=== PATIENT | female | born 1975 | race Caucasian/White ===

== ENCOUNTER 2020-10-01 17:36 | Outpatient (REF) | payer OTHER, SELFPAY | END 2020-10-01 17:37 | disposition home or self-care (01) | LOC: HO.LAB 17:36 | PROVIDERS: PCP Internal Medicine; Visit Provider Internal Medicine | DX: Z20.828 Contact with and (suspected) exposure to other viral communicable diseases (principal) | CPT/HCPCS: C9803; U0003 ==

== ENCOUNTER 2020-10-28 16:32 | Outpatient (REF) | payer OTHER, SELFPAY | END 2020-10-28 16:33 | disposition home or self-care (01) | LOC: HO.LAB 16:32 | PROVIDERS: PCP Internal Medicine; Visit Provider Internal Medicine | DX: Z20.828 Contact with and (suspected) exposure to other viral communicable diseases (principal) | CPT/HCPCS: 36415; C9803; U0003 ==

== ENCOUNTER 2021-06-06 11:10 | Outpatient (REF) | payer OTHER, SELFPAY | END 2021-06-06 11:11 | disposition home or self-care (01) | LOC: HO.LAB 11:10 | PROVIDERS: PCP Internal Medicine; Visit Provider Internal Medicine | DX: Z20.822 Contact with and (suspected) exposure to COVID-19 (principal) | CPT/HCPCS: C9803; U0003; U0005 ==

== ENCOUNTER 2021-06-20 10:53 | Emergency (ER) | payer OTHER, SELFPAY ==
--- NOTE | ~2021-06-20 | US_ITS ---
EXAMINATION: PELVIC ULTRASOUND CLINICAL INFORMATION: Pain COMPARISON: Previous CT of the abdomen and pelvis most recent from earlier the same day and pelvic ultrasound March 2017 TECHNIQUE: Transabdominal and transvaginal pelvic ultrasound was performed. Transvaginal exam was performed for better visualization of the uterus and ovaries. Grayscale and color Doppler evaluation including waveform spectral analysis of the ovarian vessels was also performed. FINDINGS: The uterus is retroverted and measures 9.2 x 4.6 x 5.2 cm. No focal uterine lesion is seen. Endometrial thickness is normal measuring 0.7 cm. There are nabothian cysts in the cervix. The right ovary is enlarged and measures 4.7 x 4.2 x 3.4 cm. There is a 4.3 x 3.7 x 3.3 cm complex cyst with several septations. The left ovary is upper normal in size and measures 3.7 x 2.7 x 2.6 cm. There is a 3.7 x 2.7 x 2.6 cm complex cyst with low-level internal echoes. This has a small peripheral echogenic component that measures 1.2 x 1.1 x 0.8 cm. There is a 1.6 x 1.5 x 1.8 cm simple cyst. There is a small amount of fluid in the pelvis. US/US pelvic ovarian doppler IMPRESSION: Bilateral complex ovarian cysts. No evidence of torsion. Small amount of fluid in the pelvis.
--- NOTE | ~2021-06-20 | CT_ITS ---
EXAMINATION: CT ABDOMEN AND PELVIS WITHOUT CONTRAST CLINICAL INFORMATION: Flank pain. Hematuria. COMPARISON: Previous CT of the abdomen and pelvis April 2018 TECHNIQUE: Multidetector volumetric imaging was performed from the superior aspect of the liver through the pubic symphysis. Sagittal and coronal reformatted images were obtained on the technologist's workstation. This CT examination was performed using dose optimization techniques as appropriate, variously including the following: *Automated exposure control *Adjustment of mA and/or kV according to patient size (this includes techniques or standardized protocols for targeted exams where dose is matched to indication/reason for exam; i.e. extremities or head) *Use of iterative reconstruction technique DLP: 673 mGy-cm FINDINGS: LUNG BASES: The visualized lung bases are unremarkable. LIVER, GALLBLADDER, AND BILIARY TREE: The liver is normal in size, shape, and attenuation. No focal hepatic lesion or biliary ductal dilatation is present. The gallbladder is unremarkable with no evidence of radiopaque gallstones, gallbladder wall thickening, or obvious pericholecystic inflammatory changes. PANCREAS: Unremarkable. SPLEEN: The spleen is slightly enlarged measuring 14 cm in length. ADRENAL GLANDS: Unremarkable. KIDNEYS AND URETERS: There are 2 right renal stones measuring 2 mm in the upper and lower pole. There are 2 left renal stones, measuring 2 mm in the midpole and 3 mm in the lower pole. No hydronephrosis, ureteral dilatation or ureteral stone. There is a 2 cm on slightly high attenuation lesion in the upper pole of the left kidney. Hounsfield units without contrast measure 26. Compare with previous CT scan probably represents a hyperdense cyst. BLADDER: Unremarkable. GASTROINTESTINAL TRACT: The small and large bowel are there is diverticulosis of the colon. Unremarkable. The appendix is unremarkable. ABDOMINAL WALL: No significant hernia is appreciated. LYMPH NODES: Normal. VASCULAR: Unremarkable. PELVIC VISCERA: Both ovaries appear enlarged containing ascitic. Largest cyst measures 3 x 4.3 cm on the right. Uterus is unremarkable. There is trace fluid in the pelvis and OSSEOUS STRUCTURES: There is an old left posterior 11th rib fracture. CT/CT abdomen pelvis wo con IMPRESSION: Small bilateral renal stones. No hydronephrosis, ureteral dilatation or ureteral. Probable 2 cm hyperdense left renal cyst. Slightly enlarged spleen. Enlarged ovaries and bilateral ovarian cysts.
[2021-06-20 11:15] VITALS: BP 129/78; PULSE 135; RESP 18; TEMP 36.9; O2SAT 95; BMI 27.7
--- NOTE | 2021-06-20 11:41 | ED_ITS ---
HPI - Abdominal Pain General Chief Complaint: Abdominal Pain Stated Complaint: abd pain Time Seen by Provider: 06/20/21 11:41 Source: patient Mode of arrival: ambulatory Limitations: no limitations History of Present Illness MD elicited complaint: abdominal pain Pertinent past history: other (ruptured ovarian cyst in past has caused hemoperitoneum) Onset (ago): day(s) (last night) Pain Consistency: constant Location: diffuse Severity: moderate Quality: cramping Radiation: none Migration to: no migration Exacerbating factors: movement Relieving factors: nothing Context: history of similar episodes Associated symptoms: nausea Related Data Previous Rx's Medication Instructions Recorded morphine 15 mg immediate release 15 mg PO Q6H PRN 3 Days #12 tab 06/20/21 tablet ondansetron 4 mg disintegrating 4 mg PO Q8H PRN #20 tab 06/20/21 tablet Allergies Allergy/AdvReac Type Severity Reaction Status Date / Time No Known Allergies Allergy Verified 06/20/21 11:15 [No Known Allergies*] Review of Systems Review of Systems Constitutional : No Weight loss, No Fever, No Chills ENT/Mouth : No sore throat, No Rhinorrhea Eyes: No Swelling, No Redness Cardiovascular : No Chest Pain, No SOB, NoEdema Respiratory : No Cough, No Sputum, No Wheezing Gastrointestinal : Positive Nausea, no Vomiting, no Diarrhea, positive abdominal Pain, No Hematochezia, No Melena Genitourinary : No Dysuria, No Urinary Frequency, No Hematuria, No Urgency Musculoskeletal : No joint pain, No Myalgias, No Joint Swelling Skin : No Skin Lesions, No rash Neuro : No Weakness, No Numbness, No Dizziness, No Headache Psych : No Anxiety/Panic, No Depression Heme/Lymph: No Bruising, No Lymphadenopathy Endocrine : No Polyuria, No Polydipsia All other systems reviewed and are negative. Physical Exam Vital Signs: Vital Signs: Last Vital Signs Temp 98.5 F 06/20/21 11:15 Pulse 135 H 06/20/21 11:15 Resp 14 06/20/21 12:13 BP 129/78 06/20/21 11:15 Pulse Ox 95 06/20/21 11:15 Body Mass Index 27.7 Appearance: Alert. Oriented X3. Anxious in pain, mild acute distress. Eyes: Pupils equal, round and reactive to light. ENT: Pharynx normal. Neck: Normal inspection. Neck supple. CVS: tachycardic heart rate and rhythm. Pulses normal. Respiratory: No respiratory distress. Breath sounds normal. Abdomen: Soft and moderate with diffuse ttp pos guarding no rebound Skin: Skin warm and dry. Normal skin color. Normal skin turgor. Extremities: No lower extremity edema. No calf ttp Neuro: Oriented X 3. No motor deficit. No sensory deficit. Procedures FAST Exam FAST Exam 1: Fluid in Morison's pouch: No Fluid in Splenorenal Junction: No Fluid around bladder, Transverse view: No Fluid around bladder, Sagittal view: No Fluid in Pericardial Sac: No Gross Wall Motion Abnormality: No Study normal for this patient: Yes Images saved for further review: No Course Course Course Narrative: noted hematuria no free fluid on FAST ?kidney stone - CT scan ordered normal appearing liver - elevated liver enzymes will have her repeat testing with her doctor, bilateral ovarian cysts cause of pain, can be managed as outpatient with oral pain medications, denies chronic ETOH abuse MDM - Abdominal Pain MDM Narrative Medical decision making narrative: 46 yo female with prior ovarian cyst with rupture in past requiring emergency surgery at this time will need labs, IVF, IV fentanyl for pain, US to evaluate ovaries, dispo per results and findings. Lab Data Result diagrams: 06/20/21 12:05 06/20/21 12:05 Labs: Lab Results 06/20/21 06/20/21 06/20/21 Range/Units 12:04 12:04 12:05 WBC 12.3 H (4.8-10.8) X10*3/uL RBC 4.50 (4.20-5.50) X10*6/uL Hgb 13.9 (12.0-16.0) g/dl Hct 40.3 (37-47) % MCV 89.6 (80-98) fL MCH 30.9 (27.0-33.0) pg MCHC 34.5 (31.0-35.0) g/dl RDW 12.2 (11.0-16.0) % Plt Count 109 L (160-400) X10*3/uL MPV 10.5 (9.4-12.3) fL Immature Gran % (Auto) 0.2 (0.0-0.4) % Neut % (Auto) 90.9 H (45-73) % Lymph % (Auto) 4.7 L (20-40) % [place] % (Auto) 4.1 (2-11) % Eos % (Auto) 0.0 (0-4) % Baso % (Auto) 0.1 (0-2) % Lymph # (Auto) 0.6 L (1.2-4.9) X10*3/uL [place] # (Auto) 0.5 (0.1-1.2) X10*3/uL Eos # (Auto) 0.0 (0.0-0.4) X10*3/uL Baso # (Auto) 0.0 (0.0-0.2) X10*3/uL Abs Immat Gran (auto) 0.03 (0.00-0.03) X10*3/uL Absolute Neuts (auto) 11.2 H (2.0-8.3) X10*3/uL Absolute Nucleated RBC 0.000 (0.0-0.012) X10*3/uL Nucleated RBC % (auto) 0.0 (0.0-0.2) /100WBC Smear Tech's Comments VERIFIED PT (9.9-13.0) SEC INR (0.9-1.1) APTT (24.1-38.0) SEC Sodium (135-145) mmol/L Potassium (3.3-5.1) mmol/L Chloride (96-108) mmol/L Carbon Dioxide (22-29) mmol/L Anion Gap (12-20) BUN (9-16) mg/dL Creatinine (0.5-1.4) mg/dL Estim Creat Clear Calc Estimated GFR Random Glucose (60-115) mg/dL Lactic Acid (0.5-2.0) mmol/L Calcium (8.4-10.2) mg/dL Magnesium (1.6-2.6) mg/dL Total Bilirubin (0.0-1.0) mg/dL Direct Bilirubin (0.0-0.5) mg/dL AST (5-31) U/L ALT (0-31) U/L Alkaline Phosphatase (39-117) U/L Total Protein (6.5-8.0) g/dL Albumin (3.5-5.0) g/dL Lipase (8-78) U/L Urine Color DARK YELLOW Urine Appearance HAZY Urine pH 5.5 (5.0-8.0) Ur Specific [place] >= 1.030 H (1.005-1.025) Urine Protein TRACE (NEG-TRACE) MG/DL Urine Glucose (UA) NEG (NEG) MG/DL Urine Ketones 5 (NEG) MG/DL Urine Blood NEG (NEG) Urine Nitrite NEG (NEG) Ur Leukocyte Esterase NEG (NEG) Urine Test NEGATIVE (NEGATIVE) COVID-19 (HEIDI) (Negative) COVID-19 Clin Com 06/20/21 06/20/21 06/20/21 Range/Units 12:05 12:05 12:05 WBC (4.8-10.8) X10*3/uL RBC (4.20-5.50) X10*6/uL Hgb (12.0-16.0) g/dl Hct (37-47) % MCV (80-98) fL MCH (27.0-33.0) pg MCHC (31.0-35.0) g/dl RDW (11.0-16.0) % Plt Count (160-400) X10*3/uL MPV (9.4-12.3) fL Immature Gran % (Auto) (0.0-0.4) % Neut % (Auto) (45-73) % Lymph % (Auto) (20-40) % [place] % (Auto) (2-11) % Eos % (Auto) (0-4) % Baso % (Auto) (0-2) % Lymph # (Auto) (1.2-4.9) X10*3/uL [place] # (Auto) (0.1-1.2) X10*3/uL Eos # (Auto) (0.0-0.4) X10*3/uL Baso # (Auto) (0.0-0.2) X10*3/uL Abs Immat Gran (auto) (0.00-0.03) X10*3/uL Absolute Neuts (auto) (2.0-8.3) X10*3/uL Absolute Nucleated RBC (0.0-0.012) X10*3/uL Nucleated RBC % (auto) (0.0-0.2) /100WBC Smear Tech's Comments PT 14.0 H (9.9-13.0) SEC INR 1.2 H (0.9-1.1) APTT 39.7 H (24.1-38.0) SEC Sodium 136 (135-145) mmol/L Potassium 3.6 (3.3-5.1) mmol/L Chloride 106 (96-108) mmol/L Carbon Dioxide 22 (22-29) mmol/L Anion Gap 12 (12-20) BUN 9 (9-16) mg/dL Creatinine 0.73 (0.5-1.4) mg/dL Estim Creat Clear Calc 106.1 Estimated GFR > 60 Random Glucose 103 (60-115) mg/dL Lactic Acid 1.9 (0.5-2.0) mmol/L Calcium 8.4 (8.4-10.2) mg/dL Magnesium 1.5 L (1.6-2.6) mg/dL Total Bilirubin 2.2 H (0.0-1.0) mg/dL Direct Bilirubin 1.4 H (0.0-0.5) mg/dL AST 82 H (5-31) U/L ALT 91 H (0-31) U/L Alkaline Phosphatase 97 (39-117) U/L Total Protein 6.2 L (6.5-8.0) g/dL Albumin 3.4 L (3.5-5.0) g/dL Lipase 18 (8-78) U/L Urine Color Urine Appearance Urine pH (5.0-8.0) Ur Specific [place] (1.005-1.025) Urine Protein (NEG-TRACE) MG/DL Urine Glucose (UA) (NEG) MG/DL Urine Ketones (NEG) MG/DL Urine Blood (NEG) Urine Nitrite (NEG) Ur Leukocyte Esterase (NEG) Urine Test (NEGATIVE) COVID-19 (HEIDI) (Negative) COVID-19 Clin Com 06/20/21 06/20/21 Range/Units 12:05 12:06 WBC (4.8-10.8) X10*3/uL RBC (4.20-5.50) X10*6/uL Hgb (12.0-16.0) g/dl Hct (37-47) % MCV (80-98) fL MCH (27.0-33.0) pg MCHC (31.0-35.0) g/dl RDW (11.0-16.0) % Plt Count (160-400) X10*3/uL MPV (9.4-12.3) fL Immature Gran % (Auto) (0.0-0.4) % Neut % (Auto) (45-73) % Lymph % (Auto) (20-40) % [place] % (Auto) (2-11) % Eos % (Auto) (0-4) % Baso % (Auto) (0-2) % Lymph # (Auto) (1.2-4.9) X10*3/uL [place] # (Auto) (0.1-1.2) X10*3/uL Eos # (Auto) (0.0-0.4) X10*3/uL Baso # (Auto) (0.0-0.2) X10*3/uL Abs Immat Gran (auto) (0.00-0.03) X10*3/uL Absolute Neuts (auto) (2.0-8.3) X10*3/uL Absolute Nucleated RBC (0.0-0.012) X10*3/uL Nucleated RBC % (auto) (0.0-0.2) /100WBC Smear Tech's Comments PT (9.9-13.0) SEC INR (0.9-1.1) APTT (24.1-38.0) SEC Sodium (135-145) mmol/L Potassium (3.3-5.1) mmol/L Chloride (96-108) mmol/L Carbon Dioxide (22-29) mmol/L Anion Gap (12-20) BUN (9-16) mg/dL Creatinine (0.5-1.4) mg/dL Estim Creat Clear Calc Estimated GFR Random Glucose (60-115) mg/dL Lactic Acid (0.5-2.0) mmol/L Calcium (8.4-10.2) mg/dL Magnesium (1.6-2.6) mg/dL Total Bilirubin (0.0-1.0) mg/dL Direct Bilirubin (0.0-0.5) mg/dL AST (5-31) U/L ALT (0-31) U/L Alkaline Phosphatase (39-117) U/L Total Protein (6.5-8.0) g/dL Albumin (3.5-5.0) g/dL Lipase (8-78) U/L Urine Color Urine Appearance Urine pH (5.0-8.0) Ur Specific [place] (1.005-1.025) Urine Protein (NEG-TRACE) MG/DL Urine Glucose (UA) (NEG) MG/DL Urine Ketones (NEG) MG/DL Urine Blood (NEG) Urine Nitrite (NEG) Ur Leukocyte Esterase (NEG) Urine Test Cancelled (NEGATIVE) COVID-19 (HEIDI) Negative (Negative) COVID-19 Clin Com See Note Discharge Plan Discharge Clinical Impression: Elevated liver enzymes, Complex cyst of both ovaries, Hypomagnesemia Patient Disposition: Home, Self-Care Instructions: Ovarian Cyst (ED), Hypomagnesemia (ED) Additional Instructions: return to ED for any worsening symptoms or concerns YOU NEED TO FOLLOW UP WITH YOUR OBGYN The uterus is retroverted and measures 9.2 x 4.6 x 5.2 cm. No focal uterine lesion is seen. Endometrial thickness is normal measuring 0.7 cm. There are nabothian cysts in the cervix. The right ovary is enlarged and measures 4.7 x 4.2 x 3.4 cm. There is a 4.3 x 3.7 x 3.3 cm complex cyst with several septations. The left ovary is upper normal in size and measures 3.7 x 2.7 x 2.6 cm. There is a 3.7 x 2.7 x 2.6 cm complex cyst with low-level internal echoes. This has a small peripheral echogenic component that measures 1.2 x 1.1 x 0.8 cm. There is a 1.6 x 1.5 x 1.8 cm simple cyst. There is a small amount of fluid in the pelvis. US/US pelvic ovarian doppler IMPRESSION: Bilateral complex ovarian cysts. No evidence of torsion. Small amount of fluid in the pelvis.? NO ALCOHOL OR TYLENOL Prescriptions: New morphine 15 mg tablet 15 mg PO Q6H PRN (Reason: pain) 3 Days Qty: 12 RF: 0 ondansetron 4 mg tablet,disintegrating 4 mg PO Q8H PRN (Reason: nausea and vomiting) Qty: 20 RF: 0 Referrals: Ninoska Cheatham MD [Primary Care Provider] - 3 days (recheck liver function tests ) Stand Alone Forms: Work/School Release [facility] Past Medical History Attestation statement: The following information was validated with the patient. Medical History Kidney stones Ovarian cyst Renal cyst Social History Social History (Updated 06/20/21 @ 11:56 by Betina Ruiz DO) Alcohol intake: never Patient Tobacco Use Status: Never used Tobacco Use of substances other than those prescribed or required for medical reasons: No Advance Directives: No Advance Directives Information Provided: Yes
[2021-06-20 12:13] VITALS: RESP 14
[2021-06-20] MEDS: fentaNYL citrate/PF 100 MCG/2 ML VIAL 50 MCG IVPUSH (12:13)
[2021-06-20] MEDS: ondansetron HCL 4 MG/2 ML VIAL IVPUSH (12:13)
[2021-06-20] MEDS: 0.9 % Sodium Chloride 1,000 ML 999 ML IVCONT (12:14)
[2021-06-20 12:20] LABS: Basophils Percent Auto 0.1 % (0-2); Hematocrit 40.3 % (37-47); Hemoglobin 13.9 g/dl (12.0-16.0); Imm Gran Abs Auto 0.03 X10*3/uL (0.00-0.03); Imm Gran Pct Auto 0.2 % (0.0-0.4); Lymphocytes Absolute Auto 0.6 X10*3/uL (1.2-4.9); Lymphocytes Percent Auto 4.7 % (20-40); MANUAL DIFF FLAG SCAN; Mean Corpuscular HGB Conc 34.5 g/dl (31.0-35.0); Mean Corpuscular Hemoglobin 30.9 pg (27.0-33.0); Mean Corpuscular Volume 89.6 fL (80-98); Mean Platelet Volume 10.5 fL (9.4-12.3); Monocytes Absolute Auto 0.5 X10*3/uL (0.1-1.2); Monocytes Percent Auto 4.1 % (2-11); Neutrophils Absolute Auto 11.2 X10*3/uL (2.0-8.3); Neutrophils Percent Auto 90.9 % (45-73); Platelet Count 109 X10*3/uL (160-400); Red Cell Distribution Width 12.2 % (11.0-16.0); SCAN SMEAR FLAG 1; White Blood Count 12.3 X10*3/uL (4.8-10.8)
[2021-06-20 12:27] LABS: INTERNATIONAL NORM RATIO 1.2 (0.9-1.1)
[2021-06-20 12:30] LABS: IDNOW Serial# 08D9AD1C; Partial Thromboplastin Time 39.7 SEC (24.1-38.0)
[2021-06-20 12:31] LABS: COVID-19 Test Negative (Negative)
[2021-06-20 12:35] LABS: Lactic Acid 1.9 mmol/L (0.5-2.0)
[2021-06-20 12:39] LABS: Appearance Urine HAZY; Color Urine DARK YELLOW; Glucose Urine UA NEG (NEG); Leukocyte Esterase Urine NEG (NEG); Nitrite Urine NEG (NEG); PH 5.5 (5.0-8.0); Specific Gravity - Urine >= 1.030 (1.005-1.025); Urine Blood NEG (NEG); Urine Ketones 5 MG/DL (NEG); Urine Protein TRACE MG/DL (NEG-TRACE)
[2021-06-20 12:41] LABS: Alanine Aminotransferase 91 U/L (0-31); Albumin Level 3.4 g/dL (3.5-5.0); Alkaline Phosphatase 97 U/L (39-117); Anion Gap 12 (12-20); Aspartate Amino Transferase 82 U/L (5-31); Bilirubin Direct 1.4 mg/dL (0.0-0.5); Bilirubin Total 2.2 mg/dL (0.0-1.0); Blood Urea Nitrogen 9 mg/dL (9-16); Calcium 8.4 mg/dL (8.4-10.2); Carbon Dioxide 22 mmol/L (22-29); Chloride 106 mmol/L (96-108); Creatinine Clr Calc Pharmacy 106.1; Estimated Glomerular Filt Rate > 60; Glucose Random 103 mg/dL (60-115); Lipase 18 U/L (8-78); Magnesium 1.5 mg/dL (1.6-2.6); Potassium 3.6 mmol/L (3.3-5.1); Sodium 136 mmol/L (135-145); Total Protein 6.2 g/dL (6.5-8.0)
[2021-06-20 12:48] LABS: SLIDE REVIEW VERIFIED
[2021-06-20 13:14] LABS: UPreg QC Valid YES; Urine Pregnancy NEGATIVE (NEGATIVE)
[2021-06-20] MEDS: Magnesium Sulfate/H2O 2 GM/50 ML PIGGYBACK IV (13:45)
[2021-06-20] MEDS: Ketorolac Tromethamine 15 MG/ML VIAL IVPUSH (13:58)
== END 2021-06-20 16:29 | disposition home or self-care (01) ==
PROVIDERS: Emergency Provider Emergency Medicine; PCP Internal Medicine
DX: E83.42 Hypomagnesemia (principal); N83.292 Other ovarian cyst, left side; N83.291 Other ovarian cyst, right side; R74.8 Abnormal levels of other serum enzymes; R10.9 Unspecified abdominal pain; Z20.822 Contact with and (suspected) exposure to COVID-19
CPT/HCPCS: 36415; 74176; 80048; 80076; 81003; 81025; 83605; 83690; 83735; 85025; 85610; 85730; 87635; 93975; 96361; 96365; 96366; 96375; 99284; J1885; J2405; J3010; J3475

== ENCOUNTER 2021-06-21 21:56 | Inpatient (IN) | payer OTHER, SELFPAY ==
--- NOTE | ~2021-06-21 | CT_ITS ---
EXAMINATION: CT ABDOMEN AND PELVIS WITHOUT CONTRAST CLINICAL INFORMATION: Mid to right-sided flank pain COMPARISON: 06/20/2021 TECHNIQUE: Multidetector volumetric imaging was performed from the superior aspect of the liver through the pubic symphysis. Sagittal and coronal reformatted images were obtained on the technologist's workstation. This CT examination was performed using dose optimization techniques as appropriate, variously including the following: *Automated exposure control *Adjustment of mA and/or kV according to patient size (this includes techniques or standardized protocols for targeted exams where dose is matched to indication/reason for exam; i.e. extremities or head) *Use of iterative reconstruction technique DLP: 662 mGy-cm FINDINGS: LUNG BASES: Small pleural effusions noted with adjacent dependent atelectasis. LIVER, GALLBLADDER, AND BILIARY TREE: The liver is normal in size, shape, and attenuation. No focal hepatic lesion or biliary ductal dilatation is present. The gallbladder is grossly unremarkable. PANCREAS: Unremarkable. SPLEEN: Mild splenomegaly redemonstrated. ADRENAL GLANDS: Unremarkable. KIDNEYS AND URETERS: Few scattered small bilateral renal calculi demonstrated measuring up to 4 mm. No hydronephrosis or ureteral calculus. BLADDER: Unremarkable. GASTROINTESTINAL TRACT: The small and large bowel are unremarkable. The appendix appears nondilated. Small amount of free fluid is noted in the pelvis. No free air is seen. ABDOMINAL WALL: No significant hernia is appreciated. LYMPH NODES: No lymphadenopathy is seen, though assessment is limited in the absence of intravenous contrast. VASCULAR: Minimal atherosclerotic calcification. PELVIC VISCERA: Redemonstrated bilateral ovarian cysts measuring up to approximately 3.8 cm on the right. OSSEOUS STRUCTURES: Unremarkable. CT/CT abdomen pelvis wo con IMPRESSION: 1. Small volume of nonspecific pelvic free fluid. Redemonstrated bilateral ovarian cysts, also noted on recent pelvic ultrasound 06/20/2021. 2. Mild splenomegaly redemonstrated. 3. Bilateral renal calculi without hydronephrosis.
--- NOTE | ~2021-06-21 | US_ITS ---
EXAMINATION: US RETROPERITONEAL LIMITED (RENAL ONLY) CLINICAL INFORMATION: Continued flank pain. COMPARISON: CT abdomen and pelvis 06/22/2021. TECHNIQUE: Real-time ultrasound was performed with brief Doppler evaluation. FINDINGS: RIGHT KIDNEY: 13.9 x 4.8 x 6.6 cm (SAG x AP x TRV). The kidney is normal in size, contour, and echogenicity. Renal cortical thickness is normal. No calculi or focal parenchymal lesions. No hydronephrosis. LEFT KIDNEY: 14.0 x 5.0 x 5.6 cm (SAG x AP x TRV). The kidney is normal in size, contour, and echogenicity. Renal cortical thickness is normal. There is a midpole calculus measuring 0.4 cm. The small lower pole calculus noted on the CT is not clearly identified. US/US renal BI IMPRESSION: Left renal calculus. No hydronephrosis.
[2021-06-21 22:21] VITALS: BP 155/70; PULSE 109; RESP 18; TEMP 36.9; O2SAT 95; BMI 27.7
--- NOTE | 2021-06-21 23:18 | ED.ABDPAIN ---
HPI - Abdominal Pain General Chief Complaint: Fever Stated Complaint: fever Time Seen by Provider: 06/21/21 23:03 Source: patient Mode of arrival: ambulatory Limitations: no limitations History of Present Illness HPI narrative: 46-year-old female diagnosed with kidney stones yesterday in this emergency department presents with fever of 100.7 oral, increasing pain to the flank, poor p.o. intake, malaise, and dark discolored urine. She denies chest pain or pressure, palpitations, abdominal distention, vomiting, diarrhea, constipation, and edema. MD elicited complaint: flank pain Onset (ago): day(s) (2) Pain Consistency: constant Location: R flank Severity: severe Pain scale (0-10): 9 Quality: aching Radiation: RLQ and R flank Exacerbating factors: movement Relieving factors: nothing Associated symptoms: nausea, fever, chills and anorexia Treatments prior to arrival: NSAIDs and prescription analgesics Related Data Previous Rx's Medication Instructions Recorded morphine 15 mg immediate release 15 mg PO Q6H PRN 3 Days #12 tab 06/20/21 tablet ondansetron 4 mg disintegrating 4 mg PO Q8H PRN #20 tab 06/20/21 tablet Allergies Allergy/AdvReac Type Severity Reaction Status Date / Time No Known Allergies Allergy Verified 06/21/21 22:21 [No Known Allergies*] Review of Systems Review of Systems Constitutional: Positive Fever, positive Chills, positive malaise, positive anorexia ENT/Mouth: No Ear Pain, No Hoarseness, No sore throat Eyes: No Eye Pain, No Swelling, No Redness, No Foreign Body Cardiovascular: No Chest Pain, No SOB Respiratory: No Cough, No Dyspnea Gastrointestinal: No Nausea, No Vomiting, No Diarrhea, positive abdominal Pain Genitourinary: Positive Dysuria, positive Hematuria Musculoskeletal: No joint pain, No Myalgias, No Joint Swelling Skin: No Skin lacerations, No rash Neuro: No Weakness, No Numbness, No Paresthesias, No Loss of Consciousness, No Dizziness, No Headache Psych: No Anxiety/Panic, No Depression Heme/Lymph: no easy bruising, no Lymphadenopathy Endocrine: No Polyuria, No Polydipsia Yes all other systems are reviewed and are negative Physical Exam Vital Signs: Vital Signs: Last Vital Signs Temp 98.5 F 06/21/21 22:21 Pulse 109 H 06/21/21 22:21 Resp 18 06/21/21 22:21 BP 155/70 H 06/21/21 22:21 Pulse Ox 95 06/21/21 22:21 Body Mass Index 27.7 Appearance: Alert. Oriented X3. Moderate distress. Appears tired. Eyes: Pupils equal, round and reactive to light. Sclera nonicteric. ENT: Pharynx normal. Dry mucous membranes. Neck: Normal inspection. Neck supple. No cervical lymphadenopathy. CVS: Tachycardic heart rate and rhythm. Pulses normal. Respiratory: No respiratory distress. Breath sounds normal. Abdomen: Soft and nontender. Positive bilateral CVA tenderness right greater than left Skin: Skin warm and dry. Normal skin color. Normal skin turgor. Extremities: No lower extremity edema. Gait well balanced well coordinated. Neuro: No motor deficit. No sensory deficit. Cranial nerves 2-12 intact Course Course Course Narrative: 46-year-old female presents with worsening flank pain, fever of 100.7 at home, poor p.o. intake and malaise. Will order CBC, Chem 7, urinalysis, lactic and cultures. Will give Toradol and fluids. 1:00 a.m. Urinalysis indicates positive leukocyte esterase, white count is elevated by 0.5 from yesterday, discussion with hospitalist regarding plan of care, plan is to admit for pyelonephritis. Will order CT scan of abdomen and pelvis at this time, although she did have 1 yesterday hospitalist would like to rule out obstruction as she does have bilateral renal stones measuring 2 mm. While patient does meet sepsis criteria at this time, she does not require 30 milliliters/kilogram fluid resuscitation as she does not meet severe sepsis. This was discussed with the hospitalist in detail. She will receive 2 L of fluid and ceftriaxone in the emergency department. Discussed plan with patient, patient agrees with plan of care. Consultations Consultation #1: David Time: 01:00 MDM - Abdominal Pain Differential Diagnosis Differential diagnosis: Likely abdominal pain and calculus of kidney Differential diagnosis narrative:: Pyelonephritis Medical Records Attestation: I reviewed the patient's medical records. Lab Data Attestation: I reviewed the patient's lab results. Result diagrams: 06/21/21 23:53 06/21/21 23:53 Labs: Lab Results 06/21/21 06/21/21 06/21/21 Range/Units 22:20 23:53 23:53 WBC 12.9 H (4.8-10.8) X10*3/uL RBC 4.05 L (4.20-5.50) X10*6/uL Hgb 12.6 (12.0-16.0) g/dl Hct 36.7 L (37-47) % MCV 90.6 (80-98) fL MCH 31.1 (27.0-33.0) pg MCHC 34.3 (31.0-35.0) g/dl RDW 12.7 (11.0-16.0) % Plt Count 121 L (160-400) X10*3/uL MPV 9.6 (9.4-12.3) fL Immature Gran % (Auto) 0.5 H (0.0-0.4) % Neut % (Auto) 86.7 H (45-73) % Lymph % (Auto) 8.7 L (20-40) % [place] % (Auto) 3.9 (2-11) % Eos % (Auto) 0.0 (0-4) % Baso % (Auto) 0.2 (0-2) % Lymph # (Auto) 1.1 L (1.2-4.9) X10*3/uL [place] # (Auto) 0.5 (0.1-1.2) X10*3/uL Eos # (Auto) 0.0 (0.0-0.4) X10*3/uL Baso # (Auto) 0.0 (0.0-0.2) X10*3/uL Abs Immat Gran (auto) 0.07 H (0.00-0.03) X10*3/uL Absolute Neuts (auto) 11.2 H (2.0-8.3) X10*3/uL Absolute Nucleated RBC 0.000 (0.0-0.012) X10*3/uL Nucleated RBC % (auto) 0.0 (0.0-0.2) /100WBC Sodium 134 L (135-145) mmol/L Potassium 3.7 (3.3-5.1) mmol/L Chloride 102 (96-108) mmol/L Carbon Dioxide 24 (22-29) mmol/L Anion Gap 12 (12-20) BUN 10 (9-16) mg/dL Creatinine 0.76 (0.5-1.4) mg/dL Estim Creat Clear Calc 101.9 Estimated GFR > 60 Random Glucose 112 (60-115) mg/dL Lactic Acid (0.5-2.0) mmol/L Calcium 8.3 L (8.4-10.2) mg/dL Urine Color Urine Appearance Urine pH (5.0-8.0) Ur Specific [place] (1.005-1.025) Urine Protein (NEG-TRACE) MG/DL Urine Glucose (UA) (NEG) MG/DL Urine Ketones (NEG) MG/DL Urine Blood (NEG) Urine Nitrite (NEG) Ur Leukocyte Esterase (NEG) Urine RBC (0) /HPF Urine WBC (0-4) /HPF Ur Squamous Epith Cells /LPF Urine Bacteria /LPF Urine Mucus /LPF Coronavirus (PCR) NEGATIVE (Negative) Influenza Type A (PCR) NEGATIVE (Negative) Influenza Type B (PCR) NEGATIVE (Negative) RSV RNA Qual (PCR) NEGATIVE (Negative) 06/22/21 06/22/21 Range/Units 00:12 00:19 WBC (4.8-10.8) X10*3/uL RBC (4.20-5.50) X10*6/uL Hgb (12.0-16.0) g/dl Hct (37-47) % MCV (80-98) fL MCH (27.0-33.0) pg MCHC (31.0-35.0) g/dl RDW (11.0-16.0) % Plt Count (160-400) X10*3/uL MPV (9.4-12.3) fL Immature Gran % (Auto) (0.0-0.4) % Neut % (Auto) (45-73) % Lymph % (Auto) (20-40) % [place] % (Auto) (2-11) % Eos % (Auto) (0-4) % Baso % (Auto) (0-2) % Lymph # (Auto) (1.2-4.9) X10*3/uL [place] # (Auto) (0.1-1.2) X10*3/uL Eos # (Auto) (0.0-0.4) X10*3/uL Baso # (Auto) (0.0-0.2) X10*3/uL Abs Immat Gran (auto) (0.00-0.03) X10*3/uL Absolute Neuts (auto) (2.0-8.3) X10*3/uL Absolute Nucleated RBC (0.0-0.012) X10*3/uL Nucleated RBC % (auto) (0.0-0.2) /100WBC Sodium (135-145) mmol/L Potassium (3.3-5.1) mmol/L Chloride (96-108) mmol/L Carbon Dioxide (22-29) mmol/L Anion Gap (12-20) BUN (9-16) mg/dL Creatinine (0.5-1.4) mg/dL Estim Creat Clear Calc Estimated GFR Random Glucose (60-115) mg/dL Lactic Acid 1.3 (0.5-2.0) mmol/L Calcium (8.4-10.2) mg/dL Urine Color DARK YELLOW Urine Appearance HAZY Urine pH 6.0 (5.0-8.0) Ur Specific [place] 1.025 (1.005-1.025) Urine Protein TRACE (NEG-TRACE) MG/DL Urine Glucose (UA) NEG (NEG) MG/DL Urine Ketones NEG (NEG) MG/DL Urine Blood NEG (NEG) Urine Nitrite NEG (NEG) Ur Leukocyte Esterase 1+ H (NEG) Urine RBC 1-4 (0) /HPF Urine WBC 1-4 (0-4) /HPF Ur Squamous Epith Cells 2+ /LPF Urine Bacteria TRACE /LPF Urine Mucus 3+ /LPF Coronavirus (PCR) (Negative) Influenza Type A (PCR) (Negative) Influenza Type B (PCR) (Negative) RSV RNA Qual (PCR) (Negative) Imaging Data CT scan - abdomen: Attestation: I personally reviewed and interpreted this imaging study as follows: Discharge Plan Discharge Clinical Impression: Pyelonephritis Patient Disposition: Admitted As Inpatient [facility] Past Medical History Attestation statement: The following information was validated with the patient. Source: old records reviewed Medical History Kidney stones Ovarian cyst Renal cyst Social History Social History Alcohol intake: never Patient Tobacco Use Status: Never used Tobacco Advance Directives: No Advance Directives Information Provided: Yes Patient : No
[2021-06-21 23:56] LABS: Influenza A PCR NEGATIVE (Negative); Influenza B PCR NEGATIVE (Negative); Resp Syncy Virus RNA Qual PCR NEGATIVE (Negative); SARS COV2 PCR INHOUSE NEGATIVE (Negative)
[2021-06-21 23:58] LABS: MANUAL DIFF FLAG NO
[2021-06-21 23:59] LABS: Basophils Percent Auto 0.2 % (0-2); Hematocrit 36.7 % (37-47); Hemoglobin 12.6 g/dl (12.0-16.0); Imm Gran Abs Auto 0.07 X10*3/uL (0.00-0.03); Imm Gran Pct Auto 0.5 % (0.0-0.4); Lymphocytes Absolute Auto 1.1 X10*3/uL (1.2-4.9); Lymphocytes Percent Auto 8.7 % (20-40); Mean Corpuscular HGB Conc 34.3 g/dl (31.0-35.0); Mean Corpuscular Hemoglobin 31.1 pg (27.0-33.0); Mean Corpuscular Volume 90.6 fL (80-98); Mean Platelet Volume 9.6 fL (9.4-12.3); Monocytes Absolute Auto 0.5 X10*3/uL (0.1-1.2); Monocytes Percent Auto 3.9 % (2-11); Neutrophils Absolute Auto 11.2 X10*3/uL (2.0-8.3); Neutrophils Percent Auto 86.7 % (45-73); Platelet Count 121 X10*3/uL (160-400); Red Blood Count 4.05 X10*6/uL (4.20-5.50); Red Cell Distribution Width 12.7 % (11.0-16.0); White Blood Count 12.9 X10*3/uL (4.8-10.8)
[2021-06-22] VITALS (7 sets, daily range): BP systolic 134–163; BP diastolic 71–80; PULSE 82–106; RESP 16–19; TEMP 36.7–38.2; O2SAT 91–95
[2021-06-22 00:26] LABS: Anion Gap 12 (12-20); Blood Urea Nitrogen 10 mg/dL (9-16); Calcium 8.3 mg/dL (8.4-10.2); Carbon Dioxide 24 mmol/L (22-29); Chloride 102 mmol/L (96-108); Creatinine Clr Calc Pharmacy 101.9; Estimated Glomerular Filt Rate > 60; Glucose Random 112 mg/dL (60-115); Potassium 3.7 mmol/L (3.3-5.1); Sodium 134 mmol/L (135-145)
[2021-06-22 00:26] LABS: Glucose Urine UA NEG (NEG); Leukocyte Esterase Urine 1+ (NEG); Nitrite Urine NEG (NEG); Specific Gravity - Urine 1.025 (1.005-1.025); UACC Culture Trigger YES; Urine Blood NEG (NEG); Urine Ketones NEG (NEG); Urine Protein TRACE MG/DL (NEG-TRACE)
[2021-06-22 00:27] LABS: Appearance Urine HAZY; Color Urine DARK YELLOW
[2021-06-22] MEDS: Ketorolac Tromethamine 15 MG/ML VIAL 30 MG IVPUSH (00:32)
[2021-06-22 00:35] LABS: Bacteria Urine TRACE /LPF; Mucus Urine 3+ /LPF; Squamous Epithelial Cell Urine 2+ /LPF
[2021-06-22] MEDS: 0.9 % Sodium Chloride 1,000 ML 999 ML IVCONT ×2 (00:35→01:15)
[2021-06-22 00:36] LABS: Lactic Acid 1.3 mmol/L (0.5-2.0)
[2021-06-22] MEDS: cefTRIAXone sodium 1 GM in 0.9 % Sodium Chloride 50 ML IV (01:12)
--- NOTE | 2021-06-22 01:13 | PC.NURSE ---
PT WILL BE ADMITTED AND BE MOVED TO MAIN ED. PT REPORT GIVEN TO DAVID LY.
--- NOTE | 2021-06-22 01:17 | PC.NURSE ---
Pt transferred out of [facility] into room 18.
--- NOTE | 2021-06-22 01:21 | PC.NURSE ---
Report given to Benny. Plan for CT and transport to floor afterwards.
--- NOTE | 2021-06-22 01:36 | PC.NURSE ---
Hospitalist at bedside for primary eval.
--- NOTE | 2021-06-22 01:47 | PC.NURSE ---
Pt en route to floor by camera technician.
[2021-06-22] MEDS: Lactated Ringers 1,000 ML 80 ML IVCONT ×2 (02:24→15:27)
[2021-06-22] MEDS: Enoxaparin Sodium 40 MG/0.4 ML SYRINGE SUBCUT (02:24)
[2021-06-22] MEDS: Morphine Sulfate 4 MG/ML CARTRIDGE IVPUSH ×3 (05:30→15:27)
--- NOTE | 2021-06-22 06:52 | PM.IMHP ---
History of Present Illness Date of Service: 06/22/21 Chief Complaint: suprapubic pain 46-year-old female with no significant past medical history presents to the hospital with complaints of suprapubic pain. Patient reports that her symptoms started on , she thought it was secondary to her ovarian cyst given her history of ovarian cysts andrupture and try to treated at home. The patient continued to Wednesday, and worsened. The pain initially started in the super B region but then started radiating to the rest of her abdomen. She came into the ED on Wednesday night, was told that she has kidney stones, given pain medication, Zofran and sent home, she comes back today stating that she developed a fever of 100.7, continued to have pain, and decreased appetite. She is also complaining of bilateral flank pain. She denies any urinary frequency urgency or dysuria. She denies any chest pain, no shortness of breath , cough, no nausea or vomiting, no diarrhea constipation, no lower extremity edema. No numbness tingling. On arrival patient hemodynamically stable with no significant abnormal vitals except for a temp of 98.5?, heart rate of 135, respiratory rate of 18, blood pressure 129/78, satting 95% on room air Labs are significant for WBC count of 12.9, hemoglobin of 12.6, sodium of 134, UA positive for leukocyte Estrace and some WBC, CT abdomen pending Patient will be admitted for further management Review of Systems Review of Systems: Yes all other systems are reviewed and are negative [facility] Medical History Kidney stones Ovarian cyst Renal cyst Social History Household Members: None Housing: Apartment Do you presently have visiting nurse or other home services: No Alcohol intake: never Patient Tobacco Use Status: Never used Tobacco Use of substances other than those prescribed or required for medical reasons: No Have you been hit, kicked, punched, or otherwise hurt by someone within the past year? If so, by whom?: No Do you feel safe in your current relationship?: No Current Relationship Is there a partner from a previous relationship who is making you feel unsafe now?: No Are you made to feel afraid or neglected: No Spiritual Healthcare Practices: no Jainism Healthcare Practices: no Cultural Healthcare Practices: no Advance Directives: No Advance Directives Information Provided: Yes Do you have thoughts of harming others: None Do you have a plan to hurt others: No Plan Recently lost weight without trying: No Eating poorly because of decreased appetite: No Nutrition Risks: No Nutritional Risk Patient : No : No Poor oral hygiene: No Meds Allergies Allergy/AdvReac Type Severity Reaction Status Date / Time No Known Allergies Allergy Verified 06/21/21 22:21 [No Known Allergies*] Active Medications: Current Medications Generic Name Dose Route Start Last Admin Trade Name Freq PRN Reason Stop Dose Admin Acetaminophen 650 mg 06/22/21 01:40 Acetaminophen 325 Mg Tablet PO Q6H PRN Pain, Mild (Pain Scale 1-3) Docusate Sodium 100 mg 06/22/21 01:40 Docusate Sodium 100 Mg Capsule PO DAILY PRN Constipation Enoxaparin Sodium 40 mg 06/22/21 02:00 06/22/21 02:24 Enoxaparin Sodium 40 Mg/0.4 Ml Syringe SUBCUT 40 mg Q24H TEE Administration Ceftriaxone Sodium 1 gm/ 50 mls @ 100 mls/hr 06/23/21 01:00 Sodium Chloride IV Q24H TEE Lactated Ringer's 1,000 mls @ 80 mls/hr 06/22/21 01:40 06/22/21 02:24 Lr IVCONT 80 mls/hr .[id number] TEE Administration Morphine Sulfate 4 mg 06/22/21 01:40 06/22/21 05:30 Morphine Sulfate 4 Mg/Ml Cartridge IVPUSH 4 mg Q4H PRN Administration Pain, Severe (Pain Scale 7-10) Protocol Ondansetron HCl 4 mg 06/22/21 01:40 Ondansetron Hcl 4 Mg/2 Ml Vial IVPUSH Q8H PRN Nausea and Vomiting Sodium Chloride 3 ml 06/22/21 08:00 0.9 % Sodium Chloride Flush 3 Ml Syringe IVFLUSH QSHIFT [facility] Physical Exam Vital Signs and Narrative: Vital Signs: Last Vital Signs Temp 98.1 F 06/22/21 01:57 Pulse 90 06/22/21 01:57 Resp 18 06/22/21 01:57 BP 138/73 06/22/21 01:57 Pulse Ox 95 06/22/21 01:57 Body Mass Index 27.7 Const: General: cooperative and no acute distress Orientation/consciousness: patient oriented x3 Eyes: General: appearance normal, both eyes and all related structures Pupils: Equal, round and reactive pupils present Resp: Effort & Inspection: normal respiratory effort and abnormal respiratory pattern Auscultation: clear to auscultation bilaterally Cardio: Rate: regular rate Rhythm: regular rhythm GI: Other: Diffuse abdominal tenderness, no rebound, no guarding Palpation (GI): Soft to palpation Auscultation: normal bowel sounds : Other: Left CVA tenderness Skin: General skin exam: no rashes or lesions noted Neuro: General: patient oriented x3 Cranial nerves: Yes Equal, round and reactive pupils present Cognition (Neuro): normal cognition Extrem: General: Yes normal to inspection and Yes no pedal edema Results Labs CBC and Chem 7: 06/21/21 23:53 06/21/21 23:53 Labs: Laboratory Results - last 24 hr 06/21/21 06/21/21 06/21/21 22:20 23:53 23:53 MCV 90.6 MCH 31.1 MCHC 34.3 RDW 12.7 Plt Count 121 L MPV 9.6 Immature Gran % (Auto) 0.5 H Neut % (Auto) 86.7 H Lymph % (Auto) 8.7 L [place] % (Auto) 3.9 Eos % (Auto) 0.0 Baso % (Auto) 0.2 Lymph # (Auto) 1.1 L [place] # (Auto) 0.5 Eos # (Auto) 0.0 Baso # (Auto) 0.0 Abs Immat Gran (auto) 0.07 H Absolute Neuts (auto) 11.2 H Absolute Nucleated RBC 0.000 Nucleated RBC % (auto) 0.0 Anion Gap 12 Estim Creat Clear Calc 101.9 Estimated GFR > 60 Random Glucose 112 Lactic Acid Calcium 8.3 L Urine Color Urine Appearance Urine pH Ur Specific [place] Urine Protein Urine Glucose (UA) Urine Ketones Urine Blood Urine Nitrite Ur Leukocyte Esterase Urine RBC Urine WBC Ur Squamous Epith Cells Urine Bacteria Urine Mucus Coronavirus (PCR) NEGATIVE Influenza Type A (PCR) NEGATIVE Influenza Type B (PCR) NEGATIVE RSV RNA Qual (PCR) NEGATIVE 06/22/21 06/22/21 00:12 00:19 MCV MCH MCHC RDW Plt Count MPV Immature Gran % (Auto) Neut % (Auto) Lymph % (Auto) [place] % (Auto) Eos % (Auto) Baso % (Auto) Lymph # (Auto) [place] # (Auto) Eos # (Auto) Baso # (Auto) Abs Immat Gran (auto) Absolute Neuts (auto) Absolute Nucleated RBC Nucleated RBC % (auto) Anion Gap Estim Creat Clear Calc Estimated GFR Random Glucose Lactic Acid 1.3 Calcium Urine Color DARK YELLOW Urine Appearance HAZY Urine pH 6.0 Ur Specific [place] 1.025 Urine Protein TRACE Urine Glucose (UA) NEG Urine Ketones NEG Urine Blood NEG Urine Nitrite NEG Ur Leukocyte Esterase 1+ H Urine RBC 1-4 Urine WBC 1-4 Ur Squamous Epith Cells 2+ Urine Bacteria TRACE Urine Mucus 3+ Coronavirus (PCR) Influenza Type A (PCR) Influenza Type B (PCR) RSV RNA Qual (PCR) Imaging Radiologist's Impressions: Impressions Abdomen/Pelvis CT 06/22/21 01:03 IMPRESSION: 1. Small volume of nonspecific pelvic free fluid. Redemonstrated bilateral ovarian cysts, also noted on recent pelvic ultrasound 06/20/2021. 2. Mild splenomegaly redemonstrated. 3. Bilateral renal calculi without hydronephrosis. Assessment and Plan (1) Pyelonephritis: Status: Acute (2) UTI (urinary tract infection): Status: Acute (3) Subjective fever: Status: Acute (4) Sepsis: Status: Acute 46-year-old female with history of kidney stones as well as ovarian cyst presents to the hospital with complaints of fever, as well as persistent abdominal pain # sepsis - subjective fever, tachycardia, leukocytosis - most likely secondary to UTI - will start patient on IV antibiotics - follow cultures # UTI/pyelonephritis - has CVA tenderness, UA positive, - CT abdomen negative for any obstructing stone and no evidence of pyelonephritis although clinically appears to have pyelo - will treat with IV antibiotics - follow cultures DVT prophylaxis: Lovenox Quality Stroke Does the patient have a stroke diagnosis?: No VTE Prior VTE?: No VTE Risk Level:: Medical - moderate - high VTE Device Contraindication: Treatment Not Indicated VTE Drug Contraindication: N/A - Med Ordered
[2021-06-22 07:19] LABS: MANUAL DIFF FLAG NO
[2021-06-22 07:23] LABS: Basophils Percent Auto 0.2 % (0-2); Eosinophils Percent Auto 0.3 % (0-4); Hematocrit 34.1 % (37-47); Hemoglobin 11.7 g/dl (12.0-16.0); Imm Gran Abs Auto 0.09 X10*3/uL (0.00-0.03); Imm Gran Pct Auto 0.8 % (0.0-0.4); Lymphocytes Absolute Auto 1.5 X10*3/uL (1.2-4.9); Lymphocytes Percent Auto 13.3 % (20-40); Mean Corpuscular HGB Conc 34.3 g/dl (31.0-35.0); Mean Corpuscular Volume 90.2 fL (80-98); Mean Platelet Volume 10.5 fL (9.4-12.3); Monocytes Absolute Auto 0.6 X10*3/uL (0.1-1.2); Monocytes Percent Auto 5.3 % (2-11); Neutrophils Absolute Auto 8.9 X10*3/uL (2.0-8.3); Neutrophils Percent Auto 80.1 % (45-73); Platelet Count 120 X10*3/uL (160-400); Red Blood Count 3.78 X10*6/uL (4.20-5.50); Red Cell Distribution Width 12.7 % (11.0-16.0); White Blood Count 11.1 X10*3/uL (4.8-10.8)
[2021-06-22 07:51] LABS: Anion Gap 11 (12-20); Blood Urea Nitrogen 10 mg/dL (9-16); Carbon Dioxide 24 mmol/L (22-29); Chloride 105 mmol/L (96-108); Estimated Glomerular Filt Rate > 60; Glucose Random 94 mg/dL (60-115); Potassium 3.6 mmol/L (3.3-5.1); Sodium 136 mmol/L (135-145)
--- NOTE | 2021-06-22 10:34 | MHC.CM.PN ---
met with pt who is indepedent cm intervention is not felt indicated ..pt has own transportation home
--- NOTE | 2021-06-22 11:24 | P.PNIM_ITS ---
Subjective Subjective Date of Service: 06/22/21 Interval History: seen and examined this morning follow up for abdominal pain/uti Review of Systems Review of Systems: Yes all other systems are reviewed and are negative Constitutional Constitutional: Denies chills Cardiovascular Cardiovascular: Denies chest pain Respiratory Respiratory: Denies cough Gastrointestinal Gastrointestinal: Reports abdominal pain and Denies diarrhea Physical Exam Vital Signs: Vital Signs: Last Vital Signs Temp 98.5 F 06/22/21 08:00 Pulse 92 06/22/21 08:00 Resp 19 06/22/21 08:00 BP 160/76 H 06/22/21 08:00 Pulse Ox 93 06/22/21 08:00 Body Mass Index 27.7 Const: Nutritional Appearance: well nourished Orientation/consciousness: patient oriented x3 HENMT: Head: Yes normocephalic and Yes atraumatic Eyes: Sclerae: sclerae normal Chest: Chest palpation & inspection: normal inspection of the chest Resp: Effort & Inspection: normal respiratory effort and no respiratory distress Auscultation: clear to auscultation bilaterally Cardio: Rate: regular rate Rhythm: regular rhythm GI: Other: diffuse abdominal tenderness to palpation, abdomen soft, nondistended, positive bowel sounds : Other: left CVAT Neuro: General: patient oriented x3 Cranial nerves: Yes CN's II-XII intact bilaterally and Yes Bilaterally intact EOM present Objective Data Current Medications Generic Name Dose Route Start Last Admin Trade Name Freq PRN Reason Stop Dose Admin Acetaminophen 650 mg 06/22/21 01:40 Acetaminophen 325 Mg Tablet PO Q6H PRN Pain, Mild (Pain Scale 1-3) Docusate Sodium 100 mg 06/22/21 01:40 Docusate Sodium 100 Mg Capsule PO DAILY PRN Constipation Enoxaparin Sodium 40 mg 06/22/21 02:00 06/22/21 02:24 Enoxaparin Sodium 40 Mg/0.4 Ml Syringe SUBCUT 40 mg Q24H TEE Administration Ceftriaxone Sodium 1 gm/ 50 mls @ 100 mls/hr 06/23/21 01:00 Sodium Chloride IV Q24H TEE Lactated Ringer's 1,000 mls @ 80 mls/hr 06/22/21 01:40 06/22/21 02:24 Lr IVCONT 80 mls/hr .[id number] TEE Administration Ketorolac Tromethamine 15 mg 06/22/21 09:22 Ketorolac Tromethamine 15 Mg/Ml Vial IVPUSH Q6H PRN Pain, Moderate (Pain Scale 4-6 Morphine Sulfate 4 mg 06/22/21 01:40 06/22/21 09:22 Morphine Sulfate 4 Mg/Ml Cartridge IVPUSH 4 mg Q4H PRN Administration Pain, Severe (Pain Scale 7-10) Protocol Ondansetron HCl 4 mg 06/22/21 01:40 Ondansetron Hcl 4 Mg/2 Ml Vial IVPUSH Q8H PRN Nausea and Vomiting Sodium Chloride 3 ml 06/22/21 08:00 06/22/21 09:03 0.9 % Sodium Chloride Flush 3 Ml Syringe IVFLUSH Not Given QSHIFT [facility] Labs CBC & Chem 7: 06/22/21 05:45 06/22/21 05:45 Labs: Laboratory Results - last 24 hr 06/21/21 06/21/21 06/21/21 22:20 23:53 23:53 MCV 90.6 MCH 31.1 MCHC 34.3 RDW 12.7 Plt Count 121 L MPV 9.6 Immature Gran % (Auto) 0.5 H Neut % (Auto) 86.7 H Lymph % (Auto) 8.7 L [place] % (Auto) 3.9 Eos % (Auto) 0.0 Baso % (Auto) 0.2 Lymph # (Auto) 1.1 L [place] # (Auto) 0.5 Eos # (Auto) 0.0 Baso # (Auto) 0.0 Abs Immat Gran (auto) 0.07 H Absolute Neuts (auto) 11.2 H Absolute Nucleated RBC 0.000 Nucleated RBC % (auto) 0.0 Anion Gap 12 Estim Creat Clear Calc 101.9 Estimated GFR > 60 Random Glucose 112 Lactic Acid Calcium 8.3 L Urine Color Urine Appearance Urine pH Ur Specific [place] Urine Protein Urine Glucose (UA) Urine Ketones Urine Blood Urine Nitrite Ur Leukocyte Esterase Urine RBC Urine WBC Ur Squamous Epith Cells Urine Bacteria Urine Mucus Coronavirus (PCR) NEGATIVE Influenza Type A (PCR) NEGATIVE Influenza Type B (PCR) NEGATIVE RSV RNA Qual (PCR) NEGATIVE 06/22/21 06/22/21 06/22/21 00:12 00:19 05:45 MCV 90.2 MCH 31.0 MCHC 34.3 RDW 12.7 Plt Count 120 L MPV 10.5 Immature Gran % (Auto) 0.8 H Neut % (Auto) 80.1 H Lymph % (Auto) 13.3 L [place] % (Auto) 5.3 Eos % (Auto) 0.3 Baso % (Auto) 0.2 Lymph # (Auto) 1.5 [place] # (Auto) 0.6 Eos # (Auto) 0.0 Baso # (Auto) 0.0 Abs Immat Gran (auto) 0.09 H Absolute Neuts (auto) 8.9 H Absolute Nucleated RBC 0.000 Nucleated RBC % (auto) 0.0 Anion Gap Estim Creat Clear Calc Estimated GFR Random Glucose Lactic Acid 1.3 Calcium Urine Color DARK YELLOW Urine Appearance HAZY Urine pH 6.0 Ur Specific [place] 1.025 Urine Protein TRACE Urine Glucose (UA) NEG Urine Ketones NEG Urine Blood NEG Urine Nitrite NEG Ur Leukocyte Esterase 1+ H Urine RBC 1-4 Urine WBC 1-4 Ur Squamous Epith Cells 2+ Urine Bacteria TRACE Urine Mucus 3+ Coronavirus (PCR) Influenza Type A (PCR) Influenza Type B (PCR) RSV RNA Qual (PCR) 06/22/21 05:45 MCV MCH MCHC RDW Plt Count MPV Immature Gran % (Auto) Neut % (Auto) Lymph % (Auto) [place] % (Auto) Eos % (Auto) Baso % (Auto) Lymph # (Auto) [place] # (Auto) Eos # (Auto) Baso # (Auto) Abs Immat Gran (auto) Absolute Neuts (auto) Absolute Nucleated RBC Nucleated RBC % (auto) Anion Gap 11 L Estim Creat Clear Calc 121.0 Estimated GFR > 60 Random Glucose 94 Lactic Acid Calcium 8.0 L Urine Color Urine Appearance Urine pH Ur Specific [place] Urine Protein Urine Glucose (UA) Urine Ketones Urine Blood Urine Nitrite Ur Leukocyte Esterase Urine RBC Urine WBC Ur Squamous Epith Cells Urine Bacteria Urine Mucus Coronavirus (PCR) Influenza Type A (PCR) Influenza Type B (PCR) RSV RNA Qual (PCR) Assessment and Plan (1) Sepsis: Status: Acute (2) UTI (urinary tract infection): Status: Acute Assessment and Plan: 46-year-old female with history of kidney stones as well as ovarian cyst presents to the hospital with complaints of fever, as well as persistent abdominal pain sepsis met criteria with tachycardia, leukocytosis Lactic acid within normal limits - most likely secondary to UTI - will start patient on IV antibiotics - follow cultures UTI/pyelonephritis - has CVA tenderness, UA positive - CT abdomen with b/l reanal cacluli but no obstructing stone - continue IV ceftriaxone - follow urine culture, blood cultures Thrombocytopenia Seems chronic -follow CBC DVT prophylaxis: Lovenox attending: dr. poon Quality Stroke Does the patient have a stroke diagnosis?: No VTE Prior VTE?: No VTE Risk Level:: Medical - moderate - high VTE Device Contraindication: Treatment Not Indicated VTE Drug Contraindication: N/A - Med Ordered
[2021-06-22] MEDS: Ketorolac Tromethamine 15 MG/ML VIAL IVPUSH ×2 (11:38→19:26)
[2021-06-22] MEDS: Acetaminophen 325 MG TABLET 650 MG PO (19:25)
[2021-06-23] MEDS: Morphine Sulfate 4 MG/ML CARTRIDGE IVPUSH ×3 (00:51→14:43)
[2021-06-23] MEDS: Enoxaparin Sodium 40 MG/0.4 ML SYRINGE SUBCUT (00:55)
[2021-06-23] MEDS: cefTRIAXone sodium 1 GM in 0.9 % Sodium Chloride 50 ML IV (00:59)
[2021-06-23] MEDS: Ketorolac Tromethamine 15 MG/ML VIAL IVPUSH ×2 (03:52→10:00)
[2021-06-23] MEDS: Lactated Ringers 1,000 ML 80 ML IVCONT ×2 (03:53→14:43)
[2021-06-23 03:55] VITALS: BP 133/67; PULSE 91; RESP 18; TEMP 37.2; O2SAT 92
[2021-06-23 08:00] VITALS: BP 157/85; PULSE 101; RESP 18; TEMP 37.1; O2SAT 94
[2021-06-23] MEDS: 0.9 % Sodium Chloride Flush 3 ML SYRINGE IVFLUSH ×2 (08:15→20:05)
[2021-06-23 09:35] LABS: Alanine Aminotransferase 67 U/L (0-31); Alkaline Phosphatase 83 U/L (39-117); Anion Gap 10 (12-20); Aspartate Amino Transferase 59 U/L (5-31); Bilirubin Direct 1.4 mg/dL (0.0-0.5); Bilirubin Total 2.1 mg/dL (0.0-1.0); Blood Urea Nitrogen 8 mg/dL (9-16); Calcium 8.1 mg/dL (8.4-10.2); Carbon Dioxide 24 mmol/L (22-29); Chloride 105 mmol/L (96-108); Estimated Glomerular Filt Rate > 60; Glucose Random 127 mg/dL (60-115); Magnesium 1.7 mg/dL (1.6-2.6); Potassium 3.4 mmol/L (3.3-5.1); Sodium 136 mmol/L (135-145); Total Protein 5.7 g/dL (6.5-8.0)
--- NOTE | 2021-06-23 11:05 | PM.IMPN ---
Progress Note: A&P (1) Pyelonephritis: Status: Acute Assessment and Plan: 46-year-old female with history of kidney stones as well as ovarian cyst presents to the hospital with complaints of fever, as well as persistent abdominal pain sepsis. resolved met criteria with tachycardia, leukocytosis Lactic acid within normal limits - most likely secondary to UTI - will start patient on IV antibiotics - follow cultures UTI/pyelonephritis. - still with CVA tenderness, UA positive - CT abdomen with b/l reanal cacluli but no obstructing stone - continue IV ceftriaxone - follow urine culture, blood cultures negative Constipation miralax daily bisacodyl sup as needed Thrombocytopenia Seems chronic -follow CBC DVT prophylaxis:? Lovenox Subjective Subjective Date of Service: 06/23/21 Review of Systems Follow up pyelonephritis still with CVA tenderness ' mild nausea Physical Exam Vital Signs: Vital Signs: Last Vital Signs Temp 98.8 F 06/23/21 08:00 Pulse 101 H 06/23/21 08:00 Resp 18 06/23/21 08:00 BP 157/85 H 06/23/21 08:00 Pulse Ox 94 06/23/21 08:00 Body Mass Index 27.7 Appearing in no acute distress lung sounds are clear to auscultation heart regular rate rhythm, clear S1, S2 positive bowel sounds, abdomen is soft, nontender, right CVA tenderness neuro patient is alert x3, no focal deficits Objective Data Current Medications Generic Name Dose Route Start Last Admin Trade Name Freq PRN Reason Stop Dose Admin Acetaminophen 650 mg 06/22/21 01:40 06/22/21 19:25 Acetaminophen 325 Mg Tablet PO 650 mg Q6H PRN Administration Pain, Mild (Pain Scale 1-3) Docusate Sodium 100 mg 06/22/21 01:40 Docusate Sodium 100 Mg Capsule PO DAILY PRN Constipation Enoxaparin Sodium 40 mg 06/22/21 02:00 06/23/21 00:55 Enoxaparin Sodium 40 Mg/0.4 Ml Syringe SUBCUT 40 mg Q24H TEE Administration Ceftriaxone Sodium 1 gm/ 50 mls @ 100 mls/hr 06/23/21 01:00 06/23/21 01:35 Sodium Chloride IV Infused Q24H TEE Infusion Lactated Ringer's 1,000 mls @ 80 mls/hr 06/22/21 01:40 06/23/21 03:53 Lr IVCONT 80 mls/hr .[id number] TEE Administration Morphine Sulfate 4 mg 06/22/21 01:40 06/23/21 08:14 Morphine Sulfate 4 Mg/Ml Cartridge IVPUSH 4 mg Q4H PRN Administration Pain, Severe (Pain Scale 7-10) Protocol Ondansetron HCl 4 mg 06/22/21 01:40 Ondansetron Hcl 4 Mg/2 Ml Vial IVPUSH Q8H PRN Nausea and Vomiting Sodium Chloride 3 ml 06/22/21 08:00 06/23/21 08:15 0.9 % Sodium Chloride Flush 3 Ml Syringe IVFLUSH 3 ml QSHIFT TEE Administration Labs CBC & Chem 7: 06/22/21 05:45 06/23/21 08:57 Labs: Laboratory Results - last 24 hr 06/23/21 08:57 Anion Gap 10 L Estim Creat Clear Calc 129.0 Estimated GFR > 60 Random Glucose 127 H D Calcium 8.1 L Magnesium 1.7 Total Bilirubin 2.1 H Direct Bilirubin 1.4 H AST 59 H ALT 67 H Alkaline Phosphatase 83 Total Protein 5.7 L Albumin 3.0 L Microbiology Microbiology Results: Microbiology 06/22/21 00:17 Urine clean catch - Clean Catch Midstream Urine Culture - Final 06/22/21 00:19 Blood - Venous Blood Culture - Preliminary No growth after 24 hours. 06/21/21 23:53 Blood - Venous Blood Culture - Preliminary No growth after 24 hours. Quality Stroke Does the patient have a stroke diagnosis?: No VTE Prior VTE?: No VTE Risk Level:: Medical - moderate - high VTE Device Contraindication: Treatment Not Indicated VTE Drug Contraindication: N/A - Med Ordered
[2021-06-23 11:41] VITALS: BP 155/88; PULSE 91; RESP 18; TEMP 36.9; O2SAT 95
[2021-06-23] MEDS: polyethylene glycoL 3350 17 GM POWD.PACK PO (12:41)
--- NOTE | 2021-06-23 14:59 | MHC.CM.PN ---
per rounds no c date at this time
[2021-06-23 15:23] VITALS: BP 157/83; PULSE 98; RESP 18; TEMP 37.4; O2SAT 92
[2021-06-23] MEDS: oxyCODONE HCl Immed Release 5 MG TABLET PO ×2 (17:17→21:17)
[2021-06-23 19:46] VITALS: BP 142/91; PULSE 61; RESP 18; TEMP 37; O2SAT 93
[2021-06-23] MEDS: Docusate Sodium 100 MG CAPSULE PO (20:05)
[2021-06-23 23:51] VITALS: BP 142/75; PULSE 95; RESP 18; TEMP 37.4; O2SAT 94
[2021-06-24] MEDS: Lactated Ringers 1,000 ML 80 ML IVCONT (00:04)
[2021-06-24] MEDS: Enoxaparin Sodium 40 MG/0.4 ML SYRINGE SUBCUT (00:05)
[2021-06-24] MEDS: cefTRIAXone sodium 1 GM in 0.9 % Sodium Chloride 50 ML IV (00:05)
[2021-06-24 04:00] VITALS: BP 138/76; PULSE 98; RESP 18; TEMP 37.1; O2SAT 94
[2021-06-24] MEDS: oxyCODONE HCl Immed Release 5 MG TABLET PO ×3 (04:05→13:00)
[2021-06-24 06:45] LABS: Alanine Aminotransferase 66 U/L (0-31); Albumin Level 2.6 g/dL (3.5-5.0); Alkaline Phosphatase 95 U/L (39-117); Anion Gap 10 (12-20); Aspartate Amino Transferase 78 U/L (5-31); Bilirubin Direct 1.4 mg/dL (0.0-0.5); Bilirubin Total 2.1 mg/dL (0.0-1.0); Blood Urea Nitrogen 6 mg/dL (9-16); Calcium 7.6 mg/dL (8.4-10.2); Carbon Dioxide 24 mmol/L (22-29); Chloride 102 mmol/L (96-108); Creatinine Clr Calc Pharmacy 140.8; Estimated Glomerular Filt Rate > 60; Glucose Random 92 mg/dL (60-115); Potassium 3.4 mmol/L (3.3-5.1); Sodium 133 mmol/L (135-145); Total Protein 5.1 g/dL (6.5-8.0)
[2021-06-24 07:55] VITALS: BP 138/74; PULSE 95; RESP 18; TEMP 36.9; O2SAT 94
[2021-06-24] MEDS: polyethylene glycoL 3350 17 GM POWD.PACK PO (08:05)
[2021-06-24 11:23] VITALS: BP 139/62; PULSE 93; RESP 18; TEMP 37; O2SAT 94
--- NOTE | 2021-06-24 13:07 | P.DS_ITS ---
DS: Providers Provider Date of Service: 06/24/21 Date of admission: 06/22/21 01:04 Primary care physician: Ninoska Cheatham MD Discharging clinician: Lara Owen DS: Diagnosis Discharge Diagnosis (1) Pyelonephritis: Status: Acute DS: Medications Discharge Medications Home Medications: Previous Rx's Medication Instructions Recorded ondansetron 4 mg disintegrating 4 mg PO Q8H PRN #20 tab 06/20/21 tablet cefuroxime axetil 500 mg tablet 500 mg PO BID #16 tab 06/24/21 oxycodone 5 mg tablet 5 mg PO Q8H PRN #12 tab 06/24/21 DS: Summary Hospital Course Hospital Course: HP as per admitting provider 46-year-old female with no significant past medical history presents to the hospital with complaints of suprapubic pain.? Patient reports that her symptoms started on , she thought it was secondary to her ovarian cyst given her history of ovarian cysts andrupture and try to treated at home.? The patient continued to Wednesday, and worsened.? The pain initially started in the super B region but then started radiating to the rest of her abdomen.? She came into the ED on Wednesday night, was told that she has kidney stones, given pain medication, Zofran and sent home, she comes back today stating that she developed a fever of 100.7, continued to have pain, and decreased appetite.? She is also complaining of bilateral flank pain.? She denies any urinary frequency urgency or dysuria.? She denies any chest? pain, no shortness of breath , cough, no nausea or vomiting, no diarrhea constipation, no lower extremity edema.? No numbness tingling. On arrival patient hemodynamically stable with no significant abnormal vitals except for a temp of 98.5?, heart rate of 135, respiratory rate of 18, blood pressure 129/78, satting 95% on room air Labs are significant for WBC count of 12.9, hemoglobin of 12.6, sodium of 134, UA positive for leukocyte Estrace and some WBC, CT abdomen pending Patient will be admitted for further management . Pyelonephritis. Abdominal CT showed bilateral ovarian cyst with bilateral renal calculi without hydronephrosis. Patient continued to have complaints of flank pain there for renal ultrasound was obtained and showed left renal calculus with no hydronephrosis. Patient's pain has improved with morphine and oxycodone. She has also been treated with IV fluids and IV antibiotics. She has improved significantly and will be discharged to home today. 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 Time Spent with Patient Time attestation: Total time spent providing and/or coordinating discharge services: Discharge coordination time: Greater than 30 minutes Quality: Stroke Does the patient have a stroke diagnosis?: No Physical Exam Vital Signs: Vital Signs: Last Vital Signs Temp 98.6 F 06/24/21 11:23 Pulse 93 06/24/21 11:23 Resp 18 06/24/21 11:23 BP 139/62 06/24/21 11:23 Pulse Ox 94 06/24/21 11:23 Body Mass Index 27.7 Appearing in no acute distress lung sounds are clear to auscultation heart regular rate rhythm, clear S1, S2 positive bowel sounds, abdomen is soft, nontender neuro patient is alert x3, no focal deficits DS: Data Data Completed and Pending Labs on day of discharge: Laboratory Results - last 24 hr 06/24/21 05:15 Sodium 133 L Potassium 3.4 Chloride 102 Carbon Dioxide 24 Anion Gap 10 L BUN 6 L Creatinine 0.55 Estim Creat Clear Calc 140.8 Estimated GFR > 60 Random Glucose 92 Calcium 7.6 L D Total Bilirubin 2.1 H Direct Bilirubin 1.4 H AST 78 H ALT 66 H Alkaline Phosphatase 95 Total Protein 5.1 L Albumin 2.6 L Preliminary micro results at discharge 06/22/21 00:19 Blood Culture - Preliminary Blood - Venous No growth after 48 hours. 06/21/21 23:53 Blood Culture - Preliminary Blood - Venous No growth after 48 hours. Discharge Plan Discharge Anticipated Discharge Date/Time: 06/24/21 12:54 Patient Disposition: Home, Self-Care Discharge Diagnosis: Pyelonephritis Referrals: Ninoska Cheatham MD [Primary Care Provider] - 1 Week Discharge Medications: New cefuroxime axetil 500 mg tablet 500 mg PO BID Qty: 16 RF: 0 oxycodone 5 mg tablet 5 mg PO Q8H PRN (Reason: pain) Qty: 12 RF: 0 Continued ondansetron 4 mg tablet,disintegrating 4 mg PO Q8H PRN (Reason: nausea and vomiting) Qty: 20 RF: 0 Discontinued morphine 15 mg tablet 15 mg PO Q6H PRN (Reason: pain) 3 Days Qty: 12 RF: 0 Discharge Orders: Discharge Order (Routine); Ordered 06/24/21 Ordered By: Lara Owen Diet: advance to usual diet Activity on Discharge: As tolerated Stand Alone Forms: Patient Portal Discharge page Care Plan Goals: Resolution of flank pain Health Concerns: Pyelonephritis Plan of Treatment: Follow-up with your OBGYN regarding your ovarian cysts. Complete your antibiotics as prescribed Assessment: See discharge summary
--- NOTE | 2021-06-24 13:13 | MHC.CM.PN ---
pt dcd today no skilled services orderd by
== END 2021-06-24 14:44 | disposition home or self-care (01) | DRG 720 ==
LOC: HO.ED 06-22 01:09 → HO.IMC 06-22 01:17
PROVIDERS: Nurse Practitioner Acute Care; Nurse Practitioner Family; Admitting Provider Internal Medicine; Emergency Provider Student in an Organized Health Care Education/Training Program; PCP Internal Medicine; Visit Provider Family Medicine
DX: A41.9 Sepsis, unspecified organism (principal); D69.6 Thrombocytopenia, unspecified; N13.6 Pyonephrosis; K59.00 Constipation, unspecified; N83.202 Unspecified ovarian cyst, left side; N83.201 Unspecified ovarian cyst, right side; Z20.822 Contact with and (suspected) exposure to COVID-19; Z79.899 Other long term (current) drug therapy
CPT/HCPCS: 0241U; 36415; 74176; 76775; 80048; 80076; 81001; 83605; 83735; 85025; 87040; 87086; 96361; 96374; 96375; 99285; J0696; J1650; J1885; J2270

== ENCOUNTER 2021-07-21 07:44 | Outpatient (REF) | payer OTHER, SELFPAY ==
[2021-07-21 08:29] LABS: COVID-19 Test Negative (Negative)
== END 2021-07-21 07:45 | disposition home or self-care (01) ==
LOC: HO.LAB 07:44
PROVIDERS: PCP Internal Medicine; Visit Provider Internal Medicine
DX: Z20.822 Contact with and (suspected) exposure to COVID-19 (principal)
CPT/HCPCS: 36415; 87635; C9803

== ENCOUNTER 2021-10-31 09:48 | Emergency (ER) | payer OTHER, SELFPAY ==
--- NOTE | ~2021-10-31 | US_ITS ---
EXAMINATION: US PELVIS CLINICAL INFORMATION: History of ovarian cyst removal. Vaginal bleeding and pain more localized to the left lower quadrant. Last menstrual period is unknown, patient refers irregular bleeding. COMPARISON: CT abdomen/pelvis done earlier today at 5:47 PM. Pelvic ultrasound dated from 06/20/2021. TECHNIQUE: Ultrasound of the pelvis is performed using both transabdominal and transvaginal transducers along with Doppler. Transvaginal imaging is performed due to inadequate visualization transabdominally. FINDINGS: The uterus is retroverted and retroflexed measuring 13.5 x 7.4 x 8.2 cm. No fibroids are identified. The endometrium measures up to 0.9 cm in maximum thickness and is filled with heterogeneous but avascular content. The right ovary measures 3.5 x 2.3 x 1.4 cm. A previously described right ovarian complex cyst is not identified in this examination. The left ovary is enlarged and measures 6.6 x 5.7 x 5.0 cm. There is redemonstration of a complex cyst with low-level internal echoes and thickened jimenes measuring 4.6 x 3.4 x 4.8 cm (previously 3.7 x 2.7 x 2.6 cm on an ultrasound from May 2021). There is flow on color and spectral Doppler in both ovaries. There is a small amount of free fluid layering in the pelvis. US/US pelvic and transvaginal IMPRESSION: Increased size of a complex left ovarian cyst now measuring up to 4.8 cm, from approximately 3.7 cm in 06/20/2021. The flow to the left ovary is preserved at the moment of this examination, however torsion/detorsion cannot be entirely excluded as this large lesion could act as a lead point for torsion. Given increased size of this lesion, surgical consultation and evaluation with an elective pelvic MR is recommended. Heterogeneous but avascular content within the endometrium and cervical canal could represent blood products.
--- NOTE | ~2021-10-31 | US_ITS ---
EXAMINATION: US PELVIS CLINICAL INFORMATION: History of ovarian cyst removal. Vaginal bleeding and pain more localized to the left lower quadrant. Last menstrual period is unknown, patient refers irregular bleeding. COMPARISON: CT abdomen/pelvis done earlier today at 5:47 PM. Pelvic ultrasound dated from 06/20/2021. TECHNIQUE: Ultrasound of the pelvis is performed using both transabdominal and transvaginal transducers along with Doppler. Transvaginal imaging is performed due to inadequate visualization transabdominally. FINDINGS: The uterus is retroverted and retroflexed measuring 13.5 x 7.4 x 8.2 cm. No fibroids are identified. The endometrium measures up to 0.9 cm in maximum thickness and is filled with heterogeneous but avascular content. The right ovary measures 3.5 x 2.3 x 1.4 cm. A previously described right ovarian complex cyst is not identified in this examination. The left ovary is enlarged and measures 6.6 x 5.7 x 5.0 cm. There is redemonstration of a complex cyst with low-level internal echoes and thickened jimenes measuring 4.6 x 3.4 x 4.8 cm (previously 3.7 x 2.7 x 2.6 cm on an ultrasound from May 2021). There is flow on color and spectral Doppler in both ovaries. There is a small amount of free fluid layering in the pelvis. US/US pelvic ovarian doppler IMPRESSION: Increased size of a complex left ovarian cyst now measuring up to 4.8 cm, from approximately 3.7 cm in 06/20/2021. The flow to the left ovary is preserved at the moment of this examination, however torsion/detorsion cannot be entirely excluded as this large lesion could act as a lead point for torsion. Given increased size of this lesion, surgical consultation and evaluation with an elective pelvic MR is recommended. Heterogeneous but avascular content within the endometrium and cervical canal could represent blood products.
--- NOTE | ~2021-10-31 | CT_ITS ---
EXAMINATION: CT ABDOMEN AND PELVIS WITHOUT CONTRAST CLINICAL INFORMATION: Lower abdominal pain. Blood in urine. COMPARISON: Renal ultrasound 06/24/2021. CT scan abdomen pelvis 06/22/2021. Pelvic ultrasound 06/20/2021 TECHNIQUE: Multidetector volumetric imaging was performed from the superior aspect of the liver through the pubic symphysis. Sagittal and coronal reformatted images were obtained on the technologist's workstation. This CT examination was performed using dose optimization techniques as appropriate, variously including the following: *Automated exposure control *Adjustment of mA and/or kV according to patient size (this includes techniques or standardized protocols for targeted exams where dose is matched to indication/reason for exam; i.e. extremities or head) *Use of iterative reconstruction technique DLP: 551 mGy-cm FINDINGS: LUNG BASES: The visualized lung bases are unremarkable. LIVER, GALLBLADDER, AND BILIARY TREE: The liver is normal in size, shape, and attenuation. No focal hepatic lesion or biliary ductal dilatation is present. The gallbladder is unremarkable with no evidence of radiopaque gallstones, gallbladder wall thickening, or obvious pericholecystic inflammatory changes. PANCREAS: Unremarkable. SPLEEN: Spleen is mildly prominent size measuring 15 x 10.5 x 5.5 cm. This is unchanged since CAT scan 04/24/2018. ADRENAL GLANDS: Unremarkable. KIDNEYS AND URETERS: Right kidney: 1 mm nonobstructive stone upper pole right kidney. There is no hydronephrosis. There is no ureteral calculus. No hydroureter. The kidney is of normal size and contour with normal cortical thickness. Right kidney measures 12 cm superior-inferior. Left kidney: There is a nonobstructive 3 mm on the lower pole. There is no hydronephrosis. No ureteral calculus. No hydroureter. Kidneys are normal size and contour with normal cortical thickness. Left kidney measures 11.3 cm superior inferior. BLADDER: Unremarkable. GASTROINTESTINAL TRACT: There is no acute abnormality. There is no bowel wall thickening /edema. There is no bowel obstruction. There is a moderate volume of stool in the colon. The appendix is normal . The small bowel loops are unremarkable. The stomach is normal. There is no hiatal hernia. ABDOMINAL WALL: No significant hernia is appreciated. LYMPH NODES: Normal. VASCULAR: Unremarkable. PELVIC VISCERA: Uterus is retroverted. There is a 7 x 4.2 x 4.5 cm left adnexal lesion with central hypodensity of 7 Hounsfield units consistent with fluid. On pelvic ultrasound of 06/20/2021 a hemorrhagic cyst measuring 3.6 cm was present in the left ovary. Left adnexal lesion has therefore increased in size since pelvic ultrasound of 06/20/2021. The previously seen right adnexal cyst is not apparent on this CAT scan exam. No free fluid in the cul-de-sac. OSSEOUS STRUCTURES: Unremarkable. CT/CT abdomen pelvis wo con IMPRESSION: 1. Small bilateral nonobstructive renal calculi. No ureteral stone or hydroureter. No hydronephrosis. 2. Increased size of left adnexal cystic lesion since pelvic ultrasound study of 06/20/2021. This can be further assessed with repeat pelvic ultrasound. 3. Persistent mild splenomegaly. Fleischner guidelines were followed.
[2021-10-31 10:07] VITALS: BP 144/83; PULSE 120; RESP 18; TEMP 36.7; O2SAT 98; BMI 27.2
[2021-10-31 11:54] LABS: MANUAL DIFF FLAG NO
[2021-10-31 11:56] LABS: Appearance Urine HAZY; Color Urine YELLOW; Glucose Urine UA NEG (NEG); Leukocyte Esterase Urine 1+ (NEG); Nitrite Urine NEG (NEG); PH 5.5 (5.0-8.0); Specific Gravity - Urine >= 1.030 (1.005-1.025); UACC Culture Trigger YES; Urine Blood 3+ (NEG); Urine Ketones 5 MG/DL (NEG); Urine Protein TRACE MG/DL (NEG-TRACE)
[2021-10-31 11:58] LABS: UPreg QC Valid YES; Urine Pregnancy NEGATIVE (NEGATIVE)
[2021-10-31 11:59] LABS: Basophils Percent Auto 0.4 % (0-2); Eosinophils Percent Auto 0.4 % (0-4); Hematocrit 38.8 % (37.0-47.0); Hemoglobin 12.6 g/dl (12.0-16.0); Imm Gran Abs Auto 0.02 X10*3/uL (0.00-0.03); Imm Gran Pct Auto 0.3 % (0.0-0.4); Lymphocytes Absolute Auto 1.7 X10*3/uL (1.2-4.9); Lymphocytes Percent Auto 23.8 % (20-40); Mean Corpuscular HGB Conc 32.5 g/dl (31.0-35.0); Mean Corpuscular Hemoglobin 27.2 pg (27.0-33.0); Mean Corpuscular Volume 83.8 fL (80.0-98.0); Mean Platelet Volume 10.7 fL (9.4-12.3); Monocytes Absolute Auto 0.5 X10*3/uL (0.1-1.2); Monocytes Percent Auto 6.4 % (2-11); Neutrophils Percent Auto 68.7 % (45-73); Platelet Count 243 X10*3/uL (160-400); Red Blood Count 4.63 X10*6/uL (4.20-5.50); Red Cell Distribution Width 15.8 % (11.0-16.0); White Blood Count 7.3 X10*3/uL (4.8-10.8)
[2021-10-31 12:12] LABS: Bacteria Urine 1+ /LPF; COVID-19 Test Negative (Negative); IDNOW Serial# 08D9AD1C; Mucus Urine 1+ /LPF; RBC Urine 30-49 /HPF (0); Squamous Epithelial Cell Urine 2+ /LPF
[2021-10-31 12:14] LABS: Alanine Aminotransferase 37 U/L (0-31); Albumin Level 3.7 g/dL (3.5-5.0); Alkaline Phosphatase 87 U/L (39-117); Anion Gap 10 (12-20); Aspartate Amino Transferase 46 U/L (5-31); Bilirubin Total 1.4 mg/dL (0.0-1.0); Blood Urea Nitrogen 8 mg/dL (9-16); Calcium 8.9 mg/dL (8.4-10.2); Carbon Dioxide 21 mmol/L (22-29); Chloride 109 mmol/L (96-108); Creatinine Clr Calc Pharmacy 106.7; Estimated Glomerular Filt Rate > 60; Glucose Random 86 mg/dL (60-115); Potassium 4.1 mmol/L (3.3-5.1); Sodium 136 mmol/L (135-145); Total Protein 7.6 g/dL (6.5-8.0)
[2021-10-31 15:51] VITALS: BP 151/72; PULSE 91; RESP 17; TEMP 36.8; O2SAT 97
--- NOTE | 2021-10-31 15:53 | PC.NURSE ---
no change in assessment. case discussed with [facility] staff. will be seen in [facility]>
--- NOTE | 2021-10-31 17:19 | ED_ITS ---
HPI - Female Genitourinary General Chief complaint: Vaginal Bleeding Stated complaint: ovarian pain Time Seen by Provider: 10/31/21 17:04 Source: patient Mode of arrival: ambulatory Limitations: no limitations History of Present Illness HPI Narrative: 46-year-old female most significant benefit medical history wit h a previous admission for pyelonephritis, presented with lower abdominal pain that eased up after she passed the blood clots and tissue vaginally. Patient is sexually active but do not think she is , test was negative in the emergency department, patient was complaining of pelvic cramps for the past 2 days, localized to the lower pelvic area, no radiation, no relieving factor, no aggravating factor, pain was relieved after patient passed tissue mixed with blood clot, the pain went down from 10 to 2. Patient stated also that her vaginal bleeding has decreased after passing this tissue, patient tested negative for today. Patient scheduled to have total hyster ectomy in 2 months, patient also is known to have bilateral ovarian cyst both sides. Patient declined vaginal discharge fall risk for STD. Related Data Previous Rx's Medication Instructions Recorded ondansetron 4 mg disintegrating 4 mg PO Q8H PRN #20 tab 06/20/21 tablet cefuroxime axetil 500 mg tablet 500 mg PO BID #16 tab 06/24/21 oxycodone 5 mg tablet 5 mg PO Q8H PRN #12 tab 06/24/21 nitrofurantoin 100 mg PO Q12H 7 Days #14 cap 10/31/21 monohydrate/macrocrystals 100 mg capsule (Macrobid) Allergies Allergy/AdvReac Type Severity Reaction Status Date / Time No Known Allergies Allergy Verified 10/31/21 10:07 [No Known Allergies*] Review of Systems Review of Systems: all other systems are reviewed and are negative Constitutional: Reports as per HPI and Reports no additional constitutional complaints Eyes: Reports as per HPI and Reports no additional eye complaints Reports system reviewed and no additional complaints, except as documented Cardiovascular: Reports as per HPI and Reports no additional cardiovascular complaints Respiratory: Reports as per HPI and Reports no additional respiratory complaints Gastrointestinal: Reports as per HPI and Reports no additional gastrointestinal complaints Genitourinary: Reports no additional female genitourinary complaints Musculoskeletal: Reports no additional musculoskeletal complaints Skin/Breast: Reports system reviewed and no additional complaints, except as docu Psychiatric: Reports no additional psychiatric complaints Endocrine: Reports no additional endocrine complaints Hematologic/Lymphatic: Reports no additional hematologic/lymphatic complaints Allergic/Immunologic: Reports no additional allergic/immunologic complaints Reports system reviewed and no additional complaints, except as documented and Reports Abnormal speech present [facility], [facility] Past Medical History Medical History Kidney stones Ovarian cyst Renal cyst Social History Social History Household Members: None Housing: Apartment Do you presently have visiting nurse or other home services: No Alcohol intake: never Patient Tobacco Use Status: Former Tobacco user Smoked in Last 30 Days: No Use of substances other than those prescribed or required for medical reasons: No Advance Directives: No Advance Directives Information Provided: No service: No Physical Exam Vital Signs: Vital Signs: Last Vital Signs Temp 98.4 F 10/31/21 19:20 Pulse 76 10/31/21 19:29 Resp 16 10/31/21 19:29 BP 146/74 H 10/31/21 19:29 Pulse Ox 98 10/31/21 19:29 BMI result Body Mass Index 27.2 vital signs have been reviewed as appeared to be correct. Blood pressure normal. Heart rate normal. Respiration rate normal. Temperature normal. Oxygen saturation normal. Appearance: Alert. Oriented X3. No acute distress. Head: Normal external exam. Normocephalic. Atraumatic. No Acevedo signs noted. No raccoon eyes noted Eyes: PERRLA. EOMI. Conjunctiva and sclera normal. Eyelids normal. ENT: TM's Normal. Pharynx normal. Uvula midline. Moist mucous membranes. No tr ismus noted. No drooling noted. No muffled voice noted. Neck: Normal inspection. Neck supple. FROM. No adenopathy. Thyroid Normal. No meningeal signs. No neck mass noted. CVS: Normal heart rate and rhythm. Heart sound normal. No murmurs noted. Pulses normal throughout. Respiratory: No respiratory distress. Painless inspiration. Breath sounds normal. No wheezes/rales/rhonchi noted. Chest nontender. No accessory muscle usage noted or decreased air movement noted. Abdomen: Soft and nontender. Bowel sounds normal in all 4 quadrants. No distention noted. No organomegaly noted. No visible injury noted. Pelvic exam: Normal external genitalia inspection, no CMT, no tender adnexa Is palpable. Back: No CVA tenderness. Full range of motion noted. Skin: Skin warm and dry. Normal skin color. Normal skin turgor. No rashes/lesions/lacerations noted. Extremities: No lower extremity edema. Extremities exhibit normal range of motion. Extremities nontender. Neuro: Oriented X 3. Cranial nerve exam: II-XII are grossly intact No motor deficit. No sensory deficit. Reflexes normal. Course Course Course Narrative: assessment and plan. 46-year-old female with vaginal bleed and passing tissue vaginally, with lower abdominal cramps. 1. For UTI will start the patient on Macrobid, patient did not meet sirs criteria. 2. Ovarian cyst on the left side measures 4.8, with a normal vascular supply to the left ovary and no evidence of left ovarian torsion. The case discussed with Dr. Kovacs, it is okay for the patient with normal labs, no anemia, with improvement of the pelvic pain to be discharged home and follow-up with her OBGYN doctor and return if worsening of the pain. Patient was instructed to follow-up with her OBGYN doctor if she can get to her within a week or the pain is worsening to return to the emergency department. As mentioned before patient is scheduled to have total hysterectomy and scheduled to have preoperative Workup in 2 weeks. MDM - Female Genitourinary Medical Records Attestation: I reviewed the patient's medical records. Lab Data Attestation: I reviewed the patient's lab results. Result diagrams: 10/31/21 11:49 10/31/21 11:49 Labs: Lab Results 10/31/21 10/31/21 10/31/21 Range/Units 11:48 11:48 11:48 WBC (4.8-10.8) X10*3/uL RBC (4.20-5.50) X10*6/uL Hgb (12.0-16.0) g/dl Hct (37.0-47.0) % MCV (80.0-98.0) fL MCH (27.0-33.0) pg MCHC (31.0-35.0) g/dl RDW (11.0-16.0) % Plt Count (160-400) X10*3/uL MPV (9.4-12.3) fL Immature Gran % (Auto) (0.0-0.4) % Neut % (Auto) (45-73) % Lymph % (Auto) (20-40) % [place] % (Auto) (2-11) % Eos % (Auto) (0-4) % Baso % (Auto) (0-2) % Lymph # (Auto) (1.2-4.9) X10*3/uL [place] # (Auto) (0.1-1.2) X10*3/uL Eos # (Auto) (0.0-0.4) X10*3/uL Baso # (Auto) (0.0-0.2) X10*3/uL Abs Immat Gran (auto) (0.00-0.03) X10*3/uL Absolute Neuts (auto) (2.0-8.3) x10*3/uL Absolute Nucleated RBC (0.0-0.012) X10*3/uL Nucleated RBC % (auto) (0.0-0.2) /100WBC Sodium (135-145) mmol/L Potassium (3.3-5.1) mmol/L Chloride (96-108) mmol/L Carbon Dioxide (22-29) mmol/L Anion Gap (12-20) BUN (9-16) mg/dL Creatinine (0.5-1.4) mg/dL Estim Creat Clear Calc Estimated GFR Random Glucose (60-115) mg/dL Calcium (8.4-10.2) mg/dL Total Bilirubin (0.0-1.0) mg/dL AST (5-31) U/L ALT (0-31) U/L Alkaline Phosphatase (39-117) U/L Total Protein (6.5-8.0) g/dL Albumin (3.5-5.0) g/dL Urine Color YELLOW Urine Appearance HAZY Urine pH 5.5 (5.0-8.0) Ur Specific [place] >= 1.030 H (1.005-1.025) Urine Protein TRACE (NEG-TRACE) MG/DL Urine Glucose (UA) NEG (NEG) MG/DL Urine Ketones 5 (NEG) MG/DL Urine Blood 3+ H (NEG) Urine Nitrite NEG (NEG) Ur Leukocyte Esterase 1+ H (NEG) Urine RBC 30-49 H (0) /HPF Urine WBC 10-14 H (0-4) /HPF Ur Squamous Epith Cells 2+ /LPF Urine Bacteria 1+ /LPF Urine Mucus 1+ /LPF Urine Test NEGATIVE (NEGATIVE) COVID-19 (HEIDI) Negative (Negative) COVID-19 Clin Com See Note 10/31/21 10/31/21 Range/Units 11:49 11:49 WBC 7.3 (4.8-10.8) X10*3/uL RBC 4.63 (4.20-5.50) X10*6/uL Hgb 12.6 (12.0-16.0) g/dl Hct 38.8 (37.0-47.0) % MCV 83.8 (80.0-98.0) fL MCH 27.2 (27.0-33.0) pg MCHC 32.5 (31.0-35.0) g/dl RDW 15.8 (11.0-16.0) % Plt Count 243 (160-400) X10*3/uL MPV 10.7 (9.4-12.3) fL Immature Gran % (Auto) 0.3 (0.0-0.4) % Neut % (Auto) 68.7 (45-73) % Lymph % (Auto) 23.8 (20-40) % [place] % (Auto) 6.4 (2-11) % Eos % (Auto) 0.4 (0-4) % Baso % (Auto) 0.4 (0-2) % Lymph # (Auto) 1.7 (1.2-4.9) X10*3/uL [place] # (Auto) 0.5 (0.1-1.2) X10*3/uL Eos # (Auto) 0.0 (0.0-0.4) X10*3/uL Baso # (Auto) 0.0 (0.0-0.2) X10*3/uL Abs Immat Gran (auto) 0.02 (0.00-0.03) X10*3/uL Absolute Neuts (auto) 5.0 (2.0-8.3) x10*3/uL Absolute Nucleated RBC 0.000 (0.0-0.012) X10*3/uL Nucleated RBC % (auto) 0.0 (0.0-0.2) /100WBC Sodium 136 (135-145) mmol/L Potassium 4.1 D (3.3-5.1) mmol/L Chloride 109 H (96-108) mmol/L Carbon Dioxide 21 L (22-29) mmol/L Anion Gap 10 L (12-20) BUN 8 L (9-16) mg/dL Creatinine 0.72 (0.5-1.4) mg/dL Estim Creat Clear Calc 106.7 Estimated GFR > 60 Random Glucose 86 (60-115) mg/dL Calcium 8.9 D (8.4-10.2) mg/dL Total Bilirubin 1.4 H (0.0-1.0) mg/dL AST 46 H D (5-31) U/L ALT 37 H (0-31) U/L Alkaline Phosphatase 87 (39-117) U/L Total Protein 7.6 D (6.5-8.0) g/dL Albumin 3.7 D (3.5-5.0) g/dL Urine Color Urine Appearance Urine pH (5.0-8.0) Ur Specific [place] (1.005-1.025) Urine Protein (NEG-TRACE) MG/DL Urine Glucose (UA) (NEG) MG/DL Urine Ketones (NEG) MG/DL Urine Blood (NEG) Urine Nitrite (NEG) Ur Leukocyte Esterase (NEG) Urine RBC (0) /HPF Urine WBC (0-4) /HPF Ur Squamous Epith Cells /LPF Urine Bacteria /LPF Urine Mucus /LPF Urine Test (NEGATIVE) COVID-19 (HEIDI) (Negative) COVID-19 Clin Com Imaging Data pelvic ultrasound: Attestation: I personally reviewed and interpreted this imaging study as follows: Radiologist's impression: Increased size of a complex left ovarian cyst now measuring up to 4.8 cm, from approximately 3.7 cm in 06/20/2021. The flow to the left ovary is preserved at the moment of this examination, however torsion/detorsion cannot be entirely excluded as this large lesion could act as a lead point for torsion. ? Given increased size of this lesion, surgical consultation and evaluation with an elective pelvic MR is recommended. ? Heterogeneous but avascular content within the endometrium and cervical canal could represent blood products. CT scan - abdomen: Attestation: I personally reviewed and interpreted this imaging study as follows: Radiologist's impression: 1. Small bilateral nonobstructive renal calculi. No ureteral stone or hydroureter. No hydronephrosis. 2. Increased size of left adnexal cystic lesion since pelvic ultrasound study of 06/20/2021. This can be further assessed with repeat pelvic ultrasound. 3. Persistent mild splenomegaly. ? Discharge Plan Discharge Clinical Impression: UTI (urinary tract infection), Dysfunctional uterine bleeding, Complex ovarian cyst Patient Disposition: Home, Self-Care Instructions: Urinary Tract Infection in Older Adults (ED) Additional Instructions: follow-up with your OBGYN in 1 week. Seek immediate medical attention if the pain is worsening or having severe vaginal bleeding with feeling dizziness or chest pain or shortness of breath. Prescriptions: New nitrofurantoin monohyd/m-cryst [Macrobid] 100 mg capsule 100 mg PO Q12H 7 Days Qty: 14 RF: 0 No Action ondansetron 4 mg tablet,disintegrating 4 mg PO Q8H PRN (Reason: nausea and vomiting) Qty: 20 RF: 0 cefuroxime axetil 500 mg tablet 500 mg PO BID Qty: 16 RF: 0 oxycodone 5 mg tablet 5 mg PO Q8H PRN (Reason: pain) Qty: 12 RF: 0 Referrals: Ninoska Cheatham MD [Primary Care Provider] - 2 days
--- NOTE | 2021-10-31 17:23 | PC.NURSE ---
pt. comes in for vaginal bleeding and ? of a blood clot explusion at 3 am this morning. States only scant bleeding at this time. history of bilateral ovarian cysts and endometriosis. Pt. denies dysuria or hematuria. negative. no abdominal pain. well appearing. Skin color appropriate for ethnicity
[2021-10-31 19:20] VITALS: BP 146/74; PULSE 75; RESP 16; TEMP 36.9; O2SAT 98
[2021-10-31 19:29] VITALS: BP 146/74; PULSE 76; RESP 16; O2SAT 98
--- NOTE | 2021-10-31 19:46 | P.CONOB_ITS ---
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 The patient was complaining of pelvic cramps for the past 2 days, localized to the lower pelvic area but her pelvic cramps/ pain were relieved after patient passed a large vaginal blood clot, the pain went down from 10 to 2.? In addition, the Patient statedthat her vaginal bleeding has slowed down markedly after passing this large blood clot, In the emergency room the following workup was done H&H within normal, chemistry within normal, test negative.? Patient scheduled to have total hysterectomy in 2 months with her OBGYN patient also is known to have bilateral ovarian cyst CT scan showed Uterus is retroverted. There is a 7 x 4.2 x 4.5 cm left adnexal lesion with central hypodensity of 7 Hounsfield units consistent with fluid. On pelvic ultrasound of 06/20/2021 a hemorrhagic cyst measuring 3.6 cm was present in the left ovary. Left adnexal lesion has therefore increased in size since pelvic ultrasound of 06/20/2021. Pelvic ultrasound with Doppler showed: The uterus is retroverted and retroflexed measuring 13.5 x 7.4 x 8.2 cm. No fibroids are identified. The endometrium measures up to 0.9 cm in maximum thickness and filled with heterogeneous but avascular content. The right ovary measures 3.5 x 2.3 x 1.4 cm. A previously described right ovarian complex cyst is not identified in this examination. The left ovary is enlarged and measures 6.6 x 5.7 x 5.0 cm. There isredemonstration of a complex cyst with low-level internal echoes and thickened jimenes measuring 4.6 x 3.4 x 4.8 cm (previously 3.7 x 2.7 x 2.6 cm on an ultrasound from May 2021). There is flow on color and spectral Doppler in both ovaries. There is a small amount of free fluid layering in the pelvis. cc:: CC: OB [facility] Past Medical History Medical History Kidney stones Ovarian cyst Renal cyst Social History Social History Household Members: None Housing: Apartment Do you presently have visiting nurse or other home services: No Alcohol intake: never Patient Tobacco Use Status: Former Tobacco user Smoked in Last 30 Days: No Use of substances other than those prescribed or required for medical reasons: No Advance Directives: No Advance Directives Information Provided: No service: No Meds Allergies Allergy/AdvReac Type Severity Reaction Status Date / Time No Known Allergies Allergy Verified 10/31/21 10:07 [No Known Allergies*] 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 Salazar Soft and nontender. Bowel sounds normal in all 4 quadrants. No distention noted.? No organomegaly noted.? No visible injury noted. ENVIRONMENTAL SCIENCE PROGRAM DIRECTOR - Results Labs CBC & Chem 7: 10/31/21 11:49 10/31/21 11:49 Labs: Short CBC 10/31/21 Range/Units 11:49 WBC 7.3 (4.8-10.8) X10*3/uL Hgb 12.6 (12.0-16.0) g/dl Hct 38.8 (37.0-47.0) % Plt Count 243 (160-400) X10*3/uL BMP 10/31/21 11:49 Sodium 136 Potassium 4.1 D Chloride 109 H Carbon Dioxide 21 L BUN 8 L Creatinine 0.72 Calcium 8.9 D Liver Function 10/31/21 Range/Units 11:49 Total Bilirubin 1.4 H (0.0-1.0) mg/dL AST 46 H D (5-31) U/L ALT 37 H (0-31) U/L Alkaline Phosphatase 87 (39-117) U/L Albumin 3.7 D (3.5-5.0) g/dL Urine 10/31/21 10/31/21 Range/Units 11:48 11:48 Urine Color YELLOW Urine Appearance HAZY Urine pH 5.5 (5.0-8.0) Ur Specific [place] >= 1.030 H (1.005-1.025) Urine Protein TRACE (NEG-TRACE) MG/DL Urine Glucose (UA) NEG (NEG) MG/DL Urine Test NEGATIVE (NEGATIVE) Imaging CT scan - pelvis: Radiologist's impression: ITS Impressions Abdomen/Pelvis CT 10/31/21 17:56 IMPRESSION: 1. Small bilateral nonobstructive renal calculi. No ureteral stone or hydroureter. No hydronephrosis. 2. Increased size of left adnexal cystic lesion since pelvic ultrasound study of 06/20/2021. This can be further assessed with repeat pelvic ultrasound. 3. Persistent mild splenomegaly. Fleischner guidelines were followed. Doppler Study Ultrasound 10/31/21 18:43 IMPRESSION: Increased size of a complex left ovarian cyst now measuring up to 4.8 cm, from approximately 3.7 cm in 06/20/2021. The flow to the left ovary is preserved at the moment of this examination, however torsion/detorsion cannot be entirely excluded as this large lesion could act as a lead point for torsion. Given increased size of this lesion, surgical consultation and evaluation with an elective pelvic MR is recommended. Heterogeneous but avascular content within the endometrium and cervical canal could represent blood products. Pelvic/Transvag US 10/31/21 18:43 IMPRESSION: Increased size of a complex left ovarian cyst now measuring up to 4.8 cm, from approximately 3.7 cm in 06/20/2021. The flow to the left ovary is preserved at the moment of this examination, however torsion/detorsion cannot be entirely excluded as this large lesion could act as a lead point for torsion. Given increased size of this lesion, surgical consultation and evaluation with an elective pelvic MR is recommended. Heterogeneous but avascular content within the endometrium and cervical canal could represent blood products. Assessment and Plan (1) Dysfunctional uterine bleeding: Status: Acute Since the patient H&H is stable and she is not having any active vaginal bleeding, I recommended to Dr. Salazar the following: outpatient workup including endometrial biopsy to rule out endometrial pathology including hyperplasia , malignancy or a polyp, instructions to be given to patient to come back to the emergency room in case of heavy vaginal bleeding or pain otherwise follow-up with her OBGYN in 2-3 days (2) Complex ovarian cyst: Status: Acute Large complex ovarian cyst differential diagnosis include malignant versus none malignant blood donor recruiter or nongyn causes. Since Doppler studies showed normal flow to both ovaries, and abdominal exam is normal, therefore, ovarian torsion is ruled out at the moment. I recommended to Dr. Salazar the following: Signs and symptoms of torsion /detorsion and /or ovarian cyst rupture to be discussed with the patient, instructions to be given to patient to refrain from strenuous activities and/or sexual intercourse and to come back to the emergency room in case of recurrence of her abdominal pain, otherwise out patient workup is warranted including CA 125 and surgical treatment with ovarian cystectomy possible oophorectomy. I recommended a short-term follow-up with her OBGYN in the coming 2-3 days I was consulted on the phone by Dr. Salazar regarding this patient, I did not see the patient , nor examined her
[2021-10-31] MEDS: Nitrofurantoin Monohyd/M-Cryst 100 MG CAPSULE PO (21:28)
== END 2021-10-31 21:33 | disposition home or self-care (01) ==
PROVIDERS: Emergency Provider Emergency Medicine; PCP Internal Medicine
DX: N39.0 Urinary tract infection, site not specified (principal); N93.8 Other specified abnormal uterine and vaginal bleeding; N83.292 Other ovarian cyst, left side; R10.30 Lower abdominal pain, unspecified; Z20.822 Contact with and (suspected) exposure to COVID-19
CPT/HCPCS: 36415; 74176; 76830; 76856; 80053; 81001; 81025; 85025; 87086; 87088; 87186; 87635; 93975; 99284